=== PATIENT | male | born 1985 | race Caucasian/White ===

== ENCOUNTER → 2019-07-23 13:18 | Outpatient (CLI) | payer OTHER, SELFPAY | PROVIDERS: PCP Family Medicine; Visit Provider Physician Assistant | DX: R19.7 Diarrhea, unspecified (principal) | CPT/HCPCS: 87045; 87177; 87899 ==

== ENCOUNTER 2019-07-23 13:57 | Inpatient (IN) | payer OTHER, SELFPAY ==
[2019-07-23] VITALS (17 sets, daily range): BP systolic 93–161; BP diastolic 43–83; PULSE 70–127; RESP 14–16; TEMP 36.5–40.2; O2SAT 88–100; BMI 23.7
--- NOTE | 2019-07-23 | PATH_ITS ---
[facility] Accession Number: [id number] . 01 Material submitted: . appendix - APPENDIX . 02 Diagnosis: Appendix: Acute appendicitis. [facility]/07/28/2019 . 02 Electronically signed: . Ti Larsen MD, Pathologist NPI- [id number] . 01 Gross description: . Received in formalin, labeled appendix, is an intact appendix (length-7.3 cm, diameter-1.2 cm) with machado-brown smooth shiny diffusely exudate-covered serosa with attached mesoappendix (up to 1.3 cm in depth). The resection margin is received stapled. The lumen contains morales solid-soft material. The wall is up to 0.1 cm thick. No nodules, masses or lesions are identified. The resection margin is inked black. Section code: (A1) resection margin en face and three additional underwriting sales representative serial sections; (A2) one-half of the bivalved tip. ([id number]) /MRV . 02 Pathologist provided ICD-10: K35.80 . 02 CPT . 747236 Performed at: 01 [facility] [address], [place], [place] [id number] MD Jake Rondon MD Phone: [phone] Performed at: 02 [facility] [address] [place], [place] [id number] MD Kristy Sharma MD Phone: [phone]
--- NOTE | 2019-07-23 14:28 | DI.CT.S_ITS ---
PROCEDURE: CT ABDOMEN PELVIS W CON INDICATIONS: severe abdominal pain mid up and low and bloatedness TECHNIQUE: After the administration of oral and intravenous contrast, 5 mm thick sections acquired from the diaphragms to the symphysis. 5 mm thick coronal and sagittal reformats were performed. For radiation dose reduction, the following was used: automated exposure control, adjustment of mA and/or kV according to patient size. COMPARISON: None. FINDINGS: Image quality: Diagnostic. ABDOMEN: Lung bases: Lung bases are clear. Heart size is normal. Solid organs: Liver is normal in size and enhancement. Gallbladder is not enlarged or inflamed. Biliary system is non-dilated. Pancreas enhances normally. Spleen is normal in size and enhancement. No adrenal nodules. Kidneys are normal in size and enhancement, without hydronephrosis. There is mild prominence of the proximal to mid right ureter with urothelial enhancement evident near the level of the abnormal appendix. Peritoneum and bowel: The stomach and duodenum are unremarkable. The small bowel loops are nondilated. Moderate residual stool is seen within the proximal colon. The appendix is noted to be enlarged and contains multiple appendicoliths. The appendix measures up to approximately 1.4 cm in diameter. There is moderate edema identified within the mesentery surrounding the appendix. A small amount of free fluid is seen within the right paracolic cutter. No loculated fluid collections or definite free air is evident. Nodes and vessels: No retroperitoneal or mesenteric adenopathy. However, multiple subcentimeter lymph nodes are identified within the ileocolic region. Aorta and inferior vena cava are normal in caliber. Bones: No acute fracture or suspicious osseous lesion is evident. PELVIS: Genitourinary: Bladder wall thickness is normal. The prostate is not enlarged. Miscellaneous: No inguinal hernias or adenopathy. No loculated fluid collections or free air is evident. Bones: No suspicious bony lesions. No acute pelvic fractures are present. IMPRESSION: 1. Acute appendicitis. 2. Minimal free fluid within the right paracolic gutter is likely reactive. There is no abscess. 3. No bowel obstruction. 4. Nonspecific prominence of the proximal to mid right ureter with urothelial enhancement is likely reactive to the patient's acute appendicitis. Dictated by: Sadiq Wright M.D. on 07/23/2019 at 14:39 Approved by: Sadiq Wright M.D. on 07/23/2019 at 14:44
[2019-07-23 14:35] LABS: Add Manual Diff / Slide Review NO; Basophils Absolute Auto 0 /uL (0-100); Basophils Percent Auto 0.4 % (0-2); Eosinophils Absolute Auto 0 /uL (0-450); Eosinophils Percent Auto 0.3 % (2-4); Hemoglobin 15.5 g/dL (13.5-17.5); Lymphocytes Absolute Auto 1300 /uL (1100-4500); Lymphocytes Percent Auto 12.2 % (25-40); Mean Corpuscular HGB Conc 35.2 % (30-36); Mean Corpuscular Volume 85.3 fL (80-100); Monocytes Absolute Auto 700 /uL (0-900); Monocytes Percent Auto 6.2 % (3-14); Neutrophils Absolute Auto 8700 /uL (1500-7000); Neutrophils Percent Auto 80.9 % (50-75); Platelet Count 179 X10^3/uL (150-400); Red Blood Cell Count 5.16 X10^6/uL (4.5-5.9); Red Cell Distribution Width 12.8 % (11.6-14.8); White Blood Cell Count 10.8 X10^3/uL (4.5-11.0)
[2019-07-23 14:38] LABS: Potassium 3.4 mmol/L (3.4-5.1)
[2019-07-23 14:40] LABS: Alanine Aminotransferase 29 IU/L (21-72); Albumin 4.9 g/dL (3.5-5.0); Albumin Globulin Ratio 1.5 (1.0-2.8); Alkaline Phosphatase 84 U/L (38-126); Aspartate Aminotransferase 28 IU/L (17-59); BUN Creatinine Ratio 14.3 (6-22); Bilirubin Total 0.6 mg/dL (0.2-1.3); Blood Urea Nitrogen 10 mg/dL (9-20); Calcium 9.5 mg/dL (8.4-10.2); Carbon Dioxide 26 mmol/L (22-32); Chloride 100 mmol/L (98-107); Estimated Glomerular Filt Rate > 60.0 mL/min (>60); Globulin 3.2 g/dL (1.7-4.1); Glucose 133 mg/dL (70-100); HEMOLYSIS 25 (0-50); Lipase 24 U/L (23-300); Sodium 139 mmol/L (137-145); Total Protein 8.1 g/dL (6.3-8.2)
[2019-07-23] MEDS: KETOROLAC 60 MG/2 ML VIAL 30 MG IV (14:40)
[2019-07-23] MEDS: ONDANSETRON 4 MG/2 ML INJ IV (14:40)
[2019-07-23] MEDS: MORPHINE 4 MG/ML INJ IV (17:12)
[2019-07-23] MEDS: cefTRIAXone 2,000 MG in DEXTROSE 5 % IN WATER 50 ML 100 ML IV (17:12)
[2019-07-23] MEDS: metroNIDAZOLE 500 MG/100 ML PIGGYBACK 100 MG IV (18:17)
[2019-07-23] MEDS: SODIUM CHLORIDE 0.9% 250 ML 21 ML IV (18:25)
--- NOTE | 2019-07-23 18:31 | ED.ABDPAIN ---
HPI - Abdominal Pain <Surinder Barrera [facility] - Last Filed: 07/23/19 19:12> General Chief Complaint: Abdominal Pain Stated Complaint: severe abdominal pain Time Seen by Provider: 07/23/19 14:19 Source: patient and family Mode of arrival: ambulatory Limitations: no limitations History of Present Illness HPI narrative: This is a 34-year-old male, nonsmoker, who presents with significant other with acute abdominal pain in mid upper and lower abdomen for 24 hours which has been getting worse. Patient reports the pain is like grabbing and twisting and rates as 8/10 at this time. Patient states his abdomen feels bloated. He had diarrhea for 48 hours with mild subjective fever 4 days ago which resolved now. The patient reports he felt much better yesterday with good appetite at lunchtime. He denies urinary symptoms or exposure to illnesses. He reports mild chills but no nausea or vomiting. He states nothing improves his pain but feels better when he is in position. Patient had tried [id number] Imodium, Tums, Pepto-Bismol, and CBD oil which were not effective for the pain. Patient denies any previous history of abdominal surgery. His last p.o. intake was chicken broth and couple of saltines at 10:00 a.m. Related Data Previous Rx's Medication Instructions Recorded amoxicillin-pot clavulanate 1 tab PO BID #14 tab 07/25/19 Allergies Allergy/AdvReac Type Severity Reaction Status Date / Time No Known Drug Allergies Allergy Verified 07/23/19 14:16 Review of Systems <Surinder Barrera [facility] - Last Filed: 07/23/19 19:12> Review of Systems General: See HPI HEENT: Denies sinus pain, ear pain, sore throat, difficulty swallowing, dizziness. Respiratory: Denies dyspnea, cough, wheezing, hemoptysis, sputum. Cardiovascular: Denies chest pain, palpitations, orthopnea, edema. Gastrointestinal: See HPI : Denies dysuria, frequency, incontinence, hematuria, urinary retention. Musculoskeletal: Denies weakness, joint pain or bony pain. Skin: Denies rash, skin lesions, or other. Neurologic: Denies weakness, headache, numbness, change in speech, confusion, seizures, incoordination. Psychiatric: No concerning psychosocial issues. 12-point review of systems is negative except for those stated above. PFSH <TAMMY Mancia - Last Filed: 07/23/19 19:12> Medical History Arm fracture, left (Resolved 1996) Chicken pox (Resolved 1993) Surgical History S/P tonsillectomy (Resolved) Anesthesia (Resolved) History of third molar tooth extraction (Resolved 2003) Family History Grandfather Hypertension High cholesterol Diabetes mellitus Heart disease Grandmother Age: 91 Hypertension High cholesterol Diabetes mellitus Stroke Brother No problems noted. Father Collapsed lung Mother Melanoma Sjogren's syndrome Grandfather No problems noted. Grandmother No problems noted. Sister No problems noted. Social History Smoking Status: Never smoker Family History Grandfather Hypertension High cholesterol Diabetes mellitus Heart disease Grandmother Age: 91 Hypertension High cholesterol Diabetes mellitus Stroke Brother No problems noted. Father Collapsed lung Mother Melanoma Sjogren's syndrome Grandfather No problems noted. Grandmother No problems noted. Sister No problems noted. Social History household members: spouse and children Smoking Status: Never smoker alcohol intake: current Exam <TAMMY Mancia - Last Filed: 07/23/19 19:12> Narrative Exam Narrative: GEN: Alert, oriented x 3, ill appearing, and in moderate distress with facial grimacing and pale and in the face. Head: Normal cephalic, atraumatic. No scalp or temporal tenderness, palpable mass or rash. EYES: Pupils are equal, round, and reactive to light and accommodation. Extraocular muscles are intact bilaterally. There is no subconjunctival hemorrhage, exudate and sclera non-icteric. ENT: Hearing grossly intact. Nose without bleeding, purulent discharge. Mucous membrane moist, no mucosal lesion. Throat without erythema, tonsillar hypertrophy or exudate. Uvula in midline, airway patent. Neck: Trachea in midline. No JVD, non-tender without lymphadenopathy. No masses or thyroid megaly. Supple, non-tender and no meningeal signs. CARDIAC: Normal regular rate and rhythm without murmurs, gallops, or rubs. No chest wall tenderness. No peripheral edema, cyanosis or pallor. Capillary refill is less than 2 seconds. RESPIRATORY: Lungs are cleat to auscultate bilaterally. No cough, wheezes, rales, or rhonchi. No stridor, respiratory distress, increase work of breathing, or accessary muscle used. ABD: Abdomen soft, tender and mildly distended in mid abdomen. No guarding or rebound tenderness to palpate. Bowel sounds are normal in all 4 quadrants. There is no palpable masses or organomegaly. EXT: Full painless ROM of all extremities with no loss of sensation, strength, effusion or edema. SKIN: Warm, dry, normal color for patient. No erythema, lesions or rash over visible areas. BACK: Nontender without deformity or crepitance. No flank tenderness. NEUROLOGICAL: Alert and oriented to place, time and person. Sensation and motor function intact bilaterally. No facial droops, dysphasia. PSYCHIATRIC: Good judgement and reason, without hallucinations, abnormal affect or abnormal behaviors during the examination. Initial Vital Signs Initial Vital Signs: Vital Signs Temperature 97.7 F 07/23/19 14:14 Pulse Rate 70 07/23/19 14:14 Respiratory Rate 16 07/23/19 14:14 Blood Pressure 161/83 H 07/23/19 14:14 Pulse Oximetry 99 07/23/19 14:14 <Charisse Smiley DO - Last Filed: 07/27/19 07:22> Initial Vital Signs Initial Vital Signs: Vital Signs Temperature 97.7 F 07/23/19 14:14 Pulse Rate 70 07/23/19 14:14 Respiratory Rate 16 07/23/19 14:14 Blood Pressure 161/83 H 07/23/19 14:14 Pulse Oximetry 99 07/23/19 14:14 Course <TAMMY Mancia - Last Filed: 07/23/19 19:12> Orders Ordered: Discontinued Medications Acetaminophen (Tylenol) 650 mg PO Q6HR [facility] Last Admin: 07/25/19 06:19 Dose: 650 mg Admin: 07/24/19 23:49 Dose: 650 mg Admin: 07/24/19 17:21 Dose: 650 mg Admin: 07/24/19 11:33 Dose: 650 mg Admin: 07/24/19 07:07 Dose: 650 mg Admin: 07/23/19 23:53 Dose: 650 mg Admin: 07/23/19 19:36 Dose: 650 mg Amoxicillin/Clavulanate Potassium (Augmentin 875-125 Mg) 1 tab PO BID [facility] Benzocaine (Cepacol Lozenge) 1 each PO PRN PRN PRN Reason: Sore Throat Bupivacaine HCl/Epinephrine Bitart (Sensorcaine 0.25% W/ Epi (Pf)) 30 ml INJ NOW ONE Stop: 07/23/19 21:40 Last Admin: 07/23/19 21:39 Dose: 30 ml Ciprofloxacin (Cipro) 500 mg PO BID [facility] Last Admin: 07/25/19 11:18 Dose: 500 mg Fentanyl (Sublimaze) 50 mcg IV Q5MIN PRN PRN Reason: Pain, Moderate (4-6) Gabapentin (Neurontin) 900 mg PO BEDTIME [facility] Last Admin: 07/24/19 20:31 Dose: 900 mg Admin: 07/23/19 22:14 Dose: Not Given Heparin Sodium (Porcine) (Heparin) 5,000 unit SUBCUT Q8HR [facility] Last Admin: 07/25/19 06:25 Dose: 5,000 unit Admin: 07/24/19 23:28 Dose: 5,000 unit Admin: 07/24/19 13:15 Dose: 5,000 unit Admin: 07/24/19 07:07 Dose: 5,000 unit Admin: 07/23/19 22:13 Dose: Not Given Hydromorphone HCl (Dilaudid) 0.5 mg IV Q4H PRN PRN Reason: Pain, Moderate (4-6) Last Admin: 07/23/19 19:25 Dose: 0.5 mg Hydromorphone HCl (Dilaudid) 0.5 mg IV Q5MIN PRN PRN Reason: Pain, Moderate (4-6) Hydroxyzine HCl (Vistaril) 25 mg IM NOW PRN PRN Reason: Pain, Mild (1-3) Metronidazole (Flagyl) 500 mg in 100 mls @ 100 mls/hr IV NOW ONE Stop: 07/23/19 17:38 Last Admin: 07/23/19 18:17 Dose: 100 mls/hr Ceftriaxone Sodium 2,000 mg/ (Dextrose) 50 mls @ 100 mls/hr IV NOW ONE Stop: 07/23/19 16:40 Last Admin: 07/23/19 17:12 Dose: 100 mls/hr Sodium Chloride (Normal Saline 0.9%) 250 mls @ 21 mls/hr IV CONT [facility] Last Admin: 07/23/19 18:25 Dose: 21 mls/hr Ceftriaxone Sodium/Dextrose (Rocephin) 2 gm in 50 mls @ 100 mls/hr IV Q24H [facility] Last Admin: 07/24/19 17:22 Dose: 100 mls/hr Metronidazole (Flagyl) 500 mg in 100 mls @ 100 mls/hr IV Q8H [facility] Last Infusion: 07/25/19 11:18 Dose: 0 mls/hr Admin: 07/25/19 10:10 Dose: 100 mls/hr Infusion: 07/25/19 03:04 Dose: 0 mls/hr Admin: 07/25/19 01:56 Dose: 100 mls/hr Infusion: 07/24/19 19:07 Dose: 100 mls/hr Admin: 07/24/19 18:07 Dose: 100 mls/hr Infusion: 07/24/19 13:15 Dose: 0 mls/hr Admin: 07/24/19 09:27 Dose: 100 mls/hr Infusion: 07/24/19 02:55 Dose: 0 mls/hr Admin: 07/24/19 01:52 Dose: 100 mls/hr Lactated Ringer's (Lactated Ringers) 1,000 mls @ 125 mls/hr IV CONT [facility] Last Admin: 07/23/19 21:24 Dose: 84 mls/hr Infusion: 07/23/19 21:24 Dose: 84 mls/hr Admin: 07/23/19 19:26 Dose: 84 mls/hr Lactated Ringer's (Lactated Ringers) 1,000 mls @ 42 mls/hr IV CONT [facility] Last Admin: 07/23/19 20:30 Dose: 42 mls/hr Lactated Ringer's (Lactated Ringers) 1,000 mls @ 25 mls/hr IV CONT [facility] Last Admin: 07/24/19 17:23 Dose: 25 mls/hr Infusion: 07/24/19 11:54 Dose: 21 mls/hr Admin: 07/23/19 23:53 Dose: 84 mls/hr Ketorolac Tromethamine (Toradol) 30 mg IV NOW ONE Stop: 07/23/19 14:28 Last Admin: 07/23/19 14:40 Dose: 30 mg Lactobacillus Acidophilus (Bacid Caplet) 1 each PO TIDWM [facility] Last Admin: 07/25/19 09:58 Dose: 1 each Admin: 07/24/19 17:22 Dose: 1 each Admin: 07/24/19 11:30 Dose: 1 each Admin: 07/24/19 09:27 Dose: 1 each Lorazepam (Ativan) 2 mg IM NOW ONE Stop: 07/23/19 15:58 Last Admin: 07/23/19 16:12 Dose: Not Given Lorazepam (Ativan) 0.25 mg IV NOW PRN PRN Reason: Anxiety Meperidine HCl (Demerol) 25 mg IV Q5MIN PRN PRN Reason: Pain or shivering Methocarbamol (Robaxin) 750 mg PO QID [facility] Last Admin: 07/25/19 09:58 Dose: 750 mg Admin: 07/24/19 20:31 Dose: 750 mg Admin: 07/24/19 17:21 Dose: 750 mg Admin: 07/24/19 12:41 Dose: 750 mg Admin: 07/24/19 09:27 Dose: 750 mg Admin: 07/23/19 22:13 Dose: Not Given Metoclopramide HCl (Reglan) 10 mg IV NOW PRN PRN Reason: Nausea And Vomiting Morphine Sulfate (Morphine) 4 mg IV NOW ONE Stop: 07/23/19 16:14 Last Admin: 07/23/19 16:31 Dose: Not Given Morphine Sulfate (Morphine) 4 mg IV NOW ONE Stop: 07/23/19 17:09 Last Admin: 07/23/19 17:12 Dose: 4 mg Ondansetron HCl (Zofran) 4 mg IV NOW ONE Stop: 07/23/19 14:28 Last Admin: 07/23/19 14:40 Dose: 4 mg Ondansetron HCl (Zofran) 4 mg IV Q4HR PRN PRN Reason: Nausea And Vomiting Ondansetron HCl (Zofran) 4 mg IV NOW PRN PRN Reason: Nausea And Vomiting Oxycodone HCl (Percolone) 5 mg PO Q4HR PRN PRN Reason: Pain, Moderate (4-6) Oxycodone HCl (Percolone) 10 mg PO Q4HR PRN PRN Reason: Pain, Severe (7-10) Promethazine HCl (Phenadoz) 12.5 mg [place] Q6HR PRN PRN Reason: Nausea And Vomiting Vital Signs - 8 hr 07/23/19 14:14 07/23/19 16:05 07/23/19 16:08 Temperature 97.7 F Pulse Rate 70 76 Respiratory Rate 16 14 Blood Pressure 161/83 H Blood Pressure [Right Arm] 126/64 Pulse Oximetry 99 100 07/23/19 18:20 Temperature 98.9 F Pulse Rate 80 Respiratory Rate 16 Blood Pressure 146/69 H Blood Pressure [Right Arm] Pulse Oximetry 96 <Charisse Smiley DO - Last Filed: 07/27/19 07:22> Orders Ordered: Discontinued Medications Acetaminophen (Tylenol) 650 mg PO Q6HR [facility] Last Admin: 07/25/19 06:19 Dose: 650 mg Admin: 07/24/19 23:49 Dose: 650 mg Admin: 07/24/19 17:21 Dose: 650 mg Admin: 07/24/19 11:33 Dose: 650 mg Admin: 07/24/19 07:07 Dose: 650 mg Admin: 07/23/19 23:53 Dose: 650 mg Admin: 07/23/19 19:36 Dose: 650 mg Amoxicillin/Clavulanate Potassium (Augmentin 875-125 Mg) 1 tab PO BID [facility] Benzocaine (Cepacol Lozenge) 1 each PO PRN PRN PRN Reason: Sore Throat Bupivacaine HCl/Epinephrine Bitart (Sensorcaine 0.25% W/ Epi (Pf)) 30 ml INJ NOW ONE Stop: 07/23/19 21:40 Last Admin: 07/23/19 21:39 Dose: 30 ml Ciprofloxacin (Cipro) 500 mg PO BID [facility] Last Admin: 07/25/19 11:18 Dose: 500 mg Fentanyl (Sublimaze) 50 mcg IV Q5MIN PRN PRN Reason: Pain, Moderate (4-6) Gabapentin (Neurontin) 900 mg PO BEDTIME [facility] Last Admin: 07/24/19 20:31 Dose: 900 mg Admin: 07/23/19 22:14 Dose: Not Given Heparin Sodium (Porcine) (Heparin) 5,000 unit SUBCUT Q8HR [facility] Last Admin: 07/25/19 06:25 Dose: 5,000 unit Admin: 07/24/19 23:28 Dose: 5,000 unit Admin: 07/24/19 13:15 Dose: 5,000 unit Admin: 07/24/19 07:07 Dose: 5,000 unit Admin: 07/23/19 22:13 Dose: Not Given Hydromorphone HCl (Dilaudid) 0.5 mg IV Q4H PRN PRN Reason: Pain, Moderate (4-6) Last Admin: 07/23/19 19:25 Dose: 0.5 mg Hydromorphone HCl (Dilaudid) 0.5 mg IV Q5MIN PRN PRN Reason: Pain, Moderate (4-6) Hydroxyzine HCl (Vistaril) 25 mg IM NOW PRN PRN Reason: Pain, Mild (1-3) Metronidazole (Flagyl) 500 mg in 100 mls @ 100 mls/hr IV NOW ONE Stop: 07/23/19 17:38 Last Admin: 07/23/19 18:17 Dose: 100 mls/hr Ceftriaxone Sodium 2,000 mg/ (Dextrose) 50 mls @ 100 mls/hr IV NOW ONE Stop: 07/23/19 16:40 Last Admin: 07/23/19 17:12 Dose: 100 mls/hr Sodium Chloride (Normal Saline 0.9%) 250 mls @ 21 mls/hr IV CONT [facility] Last Admin: 07/23/19 18:25 Dose: 21 mls/hr Ceftriaxone Sodium/Dextrose (Rocephin) 2 gm in 50 mls @ 100 mls/hr IV Q24H [facility] Last Admin: 07/24/19 17:22 Dose: 100 mls/hr Metronidazole (Flagyl) 500 mg in 100 mls @ 100 mls/hr IV Q8H [facility] Last Infusion: 07/25/19 11:18 Dose: 0 mls/hr Admin: 07/25/19 10:10 Dose: 100 mls/hr Infusion: 07/25/19 03:04 Dose: 0 mls/hr Admin: 07/25/19 01:56 Dose: 100 mls/hr Infusion: 07/24/19 19:07 Dose: 100 mls/hr Admin: 07/24/19 18:07 Dose: 100 mls/hr Infusion: 07/24/19 13:15 Dose: 0 mls/hr Admin: 07/24/19 09:27 Dose: 100 mls/hr Infusion: 07/24/19 02:55 Dose: 0 mls/hr Admin: 07/24/19 01:52 Dose: 100 mls/hr Lactated Ringer's (Lactated Ringers) 1,000 mls @ 125 mls/hr IV CONT [facility] Last Admin: 07/23/19 21:24 Dose: 84 mls/hr Infusion: 07/23/19 21:24 Dose: 84 mls/hr Admin: 07/23/19 19:26 Dose: 84 mls/hr Lactated Ringer's (Lactated Ringers) 1,000 mls @ 42 mls/hr IV CONT [facility] Last Admin: 07/23/19 20:30 Dose: 42 mls/hr Lactated Ringer's (Lactated Ringers) 1,000 mls @ 25 mls/hr IV CONT [facility] Last Admin: 07/24/19 17:23 Dose: 25 mls/hr Infusion: 07/24/19 11:54 Dose: 21 mls/hr Admin: 07/23/19 23:53 Dose: 84 mls/hr Ketorolac Tromethamine (Toradol) 30 mg IV NOW ONE Stop: 07/23/19 14:28 Last Admin: 07/23/19 14:40 Dose: 30 mg Lactobacillus Acidophilus (Bacid Caplet) 1 each PO TIDWM [facility] Last Admin: 07/25/19 09:58 Dose: 1 each Admin: 07/24/19 17:22 Dose: 1 each Admin: 07/24/19 11:30 Dose: 1 each Admin: 07/24/19 09:27 Dose: 1 each Lorazepam (Ativan) 2 mg IM NOW ONE Stop: 07/23/19 15:58 Last Admin: 07/23/19 16:12 Dose: Not Given Lorazepam (Ativan) 0.25 mg IV NOW PRN PRN Reason: Anxiety Meperidine HCl (Demerol) 25 mg IV Q5MIN PRN PRN Reason: Pain or shivering Methocarbamol (Robaxin) 750 mg PO QID [facility] Last Admin: 07/25/19 09:58 Dose: 750 mg Admin: 07/24/19 20:31 Dose: 750 mg Admin: 07/24/19 17:21 Dose: 750 mg Admin: 07/24/19 12:41 Dose: 750 mg Admin: 07/24/19 09:27 Dose: 750 mg Admin: 07/23/19 22:13 Dose: Not Given Metoclopramide HCl (Reglan) 10 mg IV NOW PRN PRN Reason: Nausea And Vomiting Morphine Sulfate (Morphine) 4 mg IV NOW ONE Stop: 07/23/19 16:14 Last Admin: 07/23/19 16:31 Dose: Not Given Morphine Sulfate (Morphine) 4 mg IV NOW ONE Stop: 07/23/19 17:09 Last Admin: 07/23/19 17:12 Dose: 4 mg Ondansetron HCl (Zofran) 4 mg IV NOW ONE Stop: 07/23/19 14:28 Last Admin: 07/23/19 14:40 Dose: 4 mg Ondansetron HCl (Zofran) 4 mg IV Q4HR PRN PRN Reason: Nausea And Vomiting Ondansetron HCl (Zofran) 4 mg IV NOW PRN PRN Reason: Nausea And Vomiting Oxycodone HCl (Percolone) 5 mg PO Q4HR PRN PRN Reason: Pain, Moderate (4-6) Oxycodone HCl (Percolone) 10 mg PO Q4HR PRN PRN Reason: Pain, Severe (7-10) Promethazine HCl (Phenadoz) 12.5 mg [place] Q6HR PRN PRN Reason: Nausea And Vomiting Vital Signs - 8 hr 07/23/19 14:14 07/23/19 16:05 07/23/19 16:08 Temperature 97.7 F Pulse Rate 70 76 Respiratory Rate 16 14 Blood Pressure 161/83 H Blood Pressure [Right Arm] 126/64 Pulse Oximetry 99 100 07/23/19 18:20 Temperature 98.9 F Pulse Rate 80 Respiratory Rate 16 Blood Pressure 146/69 H Blood Pressure [Right Arm] Pulse Oximetry 96 MDM - Abdominal Pain <Surinder TAMMY Barrera - Last Filed: 07/23/19 19:12> Differential Diagnosis Differential diagnosis: Likely abdominal pain, acute appendicitis, calculus of kidney and constipation Medical Records Attestation: I reviewed the patient's medical records. Lab Data Attestation: I reviewed the patient's lab results. Result diagrams: 07/25/19 05:19 07/24/19 05:34 Lab Results 07/23/19 07/23/19 07/24/19 Range/Units 14:10 14:10 05:34 WBC 10.8 13.7 H (4.5-11.0) X10^3/uL RBC 5.16 4.52 (4.5-5.9) X10^6/uL Hgb 15.5 13.6 (13.5-17.5) g/dL Hct 44.0 38.9 L (41-53) % MCV 85.3 86.1 (80-100) fL MCH 30.0 30.0 (26-34) PG MCHC 35.2 34.9 (30-36) % RDW 12.8 13.1 (11.6-14.8) % Plt Count 179 132 L (150-400) X10^3/uL Neut % (Auto) 80.9 H 94.7 H (50-75) % Lymph % (Auto) 12.2 L 1.9 L (25-40) % [place] % (Auto) 6.2 3.2 (3-14) % Eos % (Auto) 0.3 L 0.0 L (2-4) % Baso % (Auto) 0.4 0.2 (0-2) % Neut # (Auto) 8700 H 55101 H (1523-0502) /uL Lymph # (Auto) 1300 300 L (7955-6040) /uL [place] # (Auto) 700 400 (0-900) /uL Eos # (Auto) 0 0 (0-450) /uL Baso # (Auto) 0 0 (0-100) /uL Sodium 139 (137-145) mmol/L Potassium 3.4 (3.4-5.1) mmol/L Chloride 100 (98-107) mmol/L Carbon Dioxide 26 (22-32) mmol/L BUN 10 (9-20) mg/dL Creatinine 0.70 (0.66-1.25) mg/dL Estimated GFR > 60.0 (>60) mL/min BUN/Creatinine Ratio 14.3 (6-22) Glucose 133 H (70-100) mg/dL Calcium 9.5 (8.4-10.2) mg/dL Magnesium (1.6-2.3) mg/dL Total Bilirubin 0.6 (0.2-1.3) mg/dL AST 28 (17-59) IU/L ALT 29 (21-72) IU/L Alkaline Phosphatase 84 (38-126) U/L Total Protein 8.1 (6.3-8.2) g/dL Albumin 4.9 (3.5-5.0) g/dL Globulin 3.2 (1.7-4.1) g/dL Albumin/Globulin Ratio 1.5 (1.0-2.8) Lipase 24 (23-300) U/L 07/24/19 07/25/19 Range/Units 05:34 05:19 WBC 6.9 (4.5-11.0) X10^3/uL RBC 4.21 L (4.5-5.9) X10^6/uL Hgb 12.8 L (13.5-17.5) g/dL Hct 36.2 L (41-53) % MCV 85.8 (80-100) fL MCH 30.3 (26-34) PG MCHC 35.3 (30-36) % RDW 13.4 (11.6-14.8) % Plt Count 107 L (150-400) X10^3/uL Neut % (Auto) 79.0 H (50-75) % Lymph % (Auto) 13.8 L (25-40) % [place] % (Auto) 5.9 (3-14) % Eos % (Auto) 0.7 L (2-4) % Baso % (Auto) 0.6 (0-2) % Neut # (Auto) 5400 (8964-5074) /uL Lymph # (Auto) 900 L (4529-7269) /uL [place] # (Auto) 400 (0-900) /uL Eos # (Auto) 0 (0-450) /uL Baso # (Auto) 0 (0-100) /uL Sodium 141 (137-145) mmol/L Potassium 3.6 (3.4-5.1) mmol/L Chloride 105 (98-107) mmol/L Carbon Dioxide 26 (22-32) mmol/L BUN 11 (9-20) mg/dL Creatinine 0.80 (0.66-1.25) mg/dL Estimated GFR > 60.0 (>60) mL/min BUN/Creatinine Ratio 13.8 (6-22) Glucose 144 H (70-100) mg/dL Calcium 8.6 (8.4-10.2) mg/dL Magnesium 1.5 L (1.6-2.3) mg/dL Total Bilirubin (0.2-1.3) mg/dL AST (17-59) IU/L ALT (21-72) IU/L Alkaline Phosphatase (38-126) U/L Total Protein (6.3-8.2) g/dL Albumin (3.5-5.0) g/dL Globulin (1.7-4.1) g/dL Albumin/Globulin Ratio (1.0-2.8) Lipase (23-300) U/L Point of care testing: Urine Dip Bedside Urine Glucose Negative Bedside Urine Bilirubin - Negative Bedside Urine Ketone - Negative Urine Specific [place] 1.015 Bedside Urine Occult Blood - Negative Bedside Urine pH 7.0 Bedside Urine Protein - Negative Bedside Urine Urobilinogen - Negative Bedside Urine Nitrite - Negative Bedside Urine Leukocytes - Negative Esterase Imaging Data CT scan - abdomen: Radiologist's impression: [place] [address] CT Scan Report Signed Patient: Jeremiah Carpio#: [id number] : 1985Acct:[id number] Age/Sex: 34 / MDate of Service: 07/23/19 Loc: ED Accession Number: [id number] Procedure: CT abdomen pelvis w con Ordering Provider: Surinder Barrera [facility] PROCEDURE: CT ABDOMEN PELVIS W CON INDICATIONS: severe abdominal pain mid up and low and bloatedness TECHNIQUE: After the administration of oral and intravenous contrast, 5 mm thick sections acquired from the diaphragms to the symphysis. 5 mm thick coronal and sagittal reformats were performed. For radiation dose reduction, the following was used: automated exposure control, adjustment of mA and/or kV according to patient size. COMPARISON: None. FINDINGS: Image quality: Diagnostic. ABDOMEN: Lung bases: Lung bases are clear. Heart size is normal. Solid organs: Liver is normal in size and enhancement. Gallbladder is not enlarged or inflamed. Biliary system is non-dilated. Pancreas enhances normally. Spleen is normal in size and enhancement. No adrenal nodules. Kidneys are normal in size and enhancement, without hydronephrosis. There is mild prominence of the proximal to mid right ureter with urothelial enhancement evident near the level of the abnormal appendix. Peritoneum and bowel: The stomach and duodenum are unremarkable. The small bowel loops are nondilated. Moderate residual stool is seen within the proximal colon. The appendix is noted to be enlarged and contains multiple appendicoliths. The appendix measures up to approximately 1.4 cm in diameter. There is moderate edema identified within the mesentery surrounding the appendix. A small amount of free fluid is seen within the right paracolic cutter. No loculated fluid collections or definite free air is evident. Nodes and vessels: No retroperitoneal or mesenteric adenopathy. However, multiple subcentimeter lymph nodes are identified within the ileocolic region. Aorta and inferior vena cava are normal in caliber. Bones: No acute fracture or suspicious osseous lesion is evident. PELVIS: Genitourinary: Bladder wall thickness is normal. The prostate is not enlarged. Miscellaneous: No inguinal hernias or adenopathy. No loculated fluid collections or free air is evident. Bones: No suspicious bony lesions. No acute pelvic fractures are present. IMPRESSION: 1. Acute appendicitis. 2. Minimal free fluid within the right paracolic gutter is likely reactive. There is no abscess. 3. No bowel obstruction. 4. Nonspecific prominence of the proximal to mid right ureter with urothelial enhancement is likely reactive to the patient's acute appendicitis. Dictated by: Sadiq Wright M.D. on 07/23/2019 at 14:39 Approved by: Sadiq Wright M.D. on 07/23/2019 at 14:44 [facility] Narrative Medical decision making narrative: The patient complain of mid upper and lower abdominal pain for 24 hours without fever, nausea or vomiting, urinary symptoms. Urine shows no blood or infections. White count was normal with elevated neutrophil. The chemistry test was unremarkable. CT abdomen and pelvis indicates patient has acute appendicitis without obstruction or abscess. Patient's physical exam showed some tenderness to palpate but no significant rebound tenderness or focalized right lower quadrant pain. Dr. Chase was consulted test endings. Patient and states pain improved with medication and was started on antibiotic medication of Rocephin [address] Corey requested with 500 mg Flagyl. <Charisse Smiley, DO - Last Filed: 07/27/19 07:22> Lab Data Lab Results 07/23/19 07/23/19 07/24/19 Range/Units 14:10 14:10 05:34 WBC 10.8 13.7 H (4.5-11.0) X10^3/uL RBC 5.16 4.52 (4.5-5.9) X10^6/uL Hgb 15.5 13.6 (13.5-17.5) g/dL Hct 44.0 38.9 L (41-53) % MCV 85.3 86.1 (80-100) fL MCH 30.0 30.0 (26-34) PG MCHC 35.2 34.9 (30-36) % RDW 12.8 13.1 (11.6-14.8) % Plt Count 179 132 L (150-400) X10^3/uL Neut % (Auto) 80.9 H 94.7 H (50-75) % Lymph % (Auto) 12.2 L 1.9 L (25-40) % [place] % (Auto) 6.2 3.2 (3-14) % Eos % (Auto) 0.3 L 0.0 L (2-4) % Baso % (Auto) 0.4 0.2 (0-2) % Neut # (Auto) 8700 H 33978 H (3735-6144) /uL Lymph # (Auto) 1300 300 L (3413-9259) /uL [place] # (Auto) 700 400 (0-900) /uL Eos # (Auto) 0 0 (0-450) /uL Baso # (Auto) 0 0 (0-100) /uL Sodium 139 (137-145) mmol/L Potassium 3.4 (3.4-5.1) mmol/L Chloride 100 (98-107) mmol/L Carbon Dioxide 26 (22-32) mmol/L BUN 10 (9-20) mg/dL Creatinine 0.70 (0.66-1.25) mg/dL Estimated GFR > 60.0 (>60) mL/min BUN/Creatinine Ratio 14.3 (6-22) Glucose 133 H (70-100) mg/dL Calcium 9.5 (8.4-10.2) mg/dL Magnesium (1.6-2.3) mg/dL Total Bilirubin 0.6 (0.2-1.3) mg/dL AST 28 (17-59) IU/L ALT 29 (21-72) IU/L Alkaline Phosphatase 84 (38-126) U/L Total Protein 8.1 (6.3-8.2) g/dL Albumin 4.9 (3.5-5.0) g/dL Globulin 3.2 (1.7-4.1) g/dL Albumin/Globulin Ratio 1.5 (1.0-2.8) Lipase 24 (23-300) U/L 07/24/19 07/25/19 Range/Units 05:34 05:19 WBC 6.9 (4.5-11.0) X10^3/uL RBC 4.21 L (4.5-5.9) X10^6/uL Hgb 12.8 L (13.5-17.5) g/dL Hct 36.2 L (41-53) % MCV 85.8 (80-100) fL MCH 30.3 (26-34) PG MCHC 35.3 (30-36) % RDW 13.4 (11.6-14.8) % Plt Count 107 L (150-400) X10^3/uL Neut % (Auto) 79.0 H (50-75) % Lymph % (Auto) 13.8 L (25-40) % [place] % (Auto) 5.9 (3-14) % Eos % (Auto) 0.7 L (2-4) % Baso % (Auto) 0.6 (0-2) % Neut # (Auto) 5400 (1521-0099) /uL Lymph # (Auto) 900 L (1985-3168) /uL [place] # (Auto) 400 (0-900) /uL Eos # (Auto) 0 (0-450) /uL Baso # (Auto) 0 (0-100) /uL Sodium 141 (137-145) mmol/L Potassium 3.6 (3.4-5.1) mmol/L Chloride 105 (98-107) mmol/L Carbon Dioxide 26 (22-32) mmol/L BUN 11 (9-20) mg/dL Creatinine 0.80 (0.66-1.25) mg/dL Estimated GFR > 60.0 (>60) mL/min BUN/Creatinine Ratio 13.8 (6-22) Glucose 144 H (70-100) mg/dL Calcium 8.6 (8.4-10.2) mg/dL Magnesium 1.5 L (1.6-2.3) mg/dL Total Bilirubin (0.2-1.3) mg/dL AST (17-59) IU/L ALT (21-72) IU/L Alkaline Phosphatase (38-126) U/L Total Protein (6.3-8.2) g/dL Albumin (3.5-5.0) g/dL Globulin (1.7-4.1) g/dL Albumin/Globulin Ratio (1.0-2.8) Lipase (23-300) U/L Point of care testing: Urine Dip Bedside Urine Glucose Negative Bedside Urine Bilirubin - Negative Bedside Urine Ketone - Negative Urine Specific [place] 1.015 Bedside Urine Occult Blood - Negative Bedside Urine pH 7.0 Bedside Urine Protein - Negative Bedside Urine Urobilinogen - Negative Bedside Urine Nitrite - Negative Bedside Urine Leukocytes - Negative Esterase Discharge Plan Departure Patient Disposition: Admitted As Inpatient Clinical Impression: Acute appendicitis Qualifiers: Acute appendicitis type: unspecified acute appendicitis type Qualified Code(s): K35.80 - Unspecified acute appendicitis Discharge Date/Time: 07/23/19 17:30 Interventions: ED Discharge Assessment Last Done: 07/23/19 17:26 Admit Date/Time: 07/23/19 17:33 Admit Provider: Pelon Corey <Charisse Smiley DO - Last Filed: 07/27/19 07:22> Cosign ED Attending Cosrodgerature Attestation: I was immediately available in the department for consultation, case was discussed. This documentation has been reviewed and I agree with assessment and plan. Supervised by Charisse Smiley DO
--- NOTE | 2019-07-23 19:24 | PM.HP.1 ---
History of Present Illness Date Patient Seen: 07/23/19 Time Patient Seen: 16:00 Chief complaint: severe abdominal pain Narrative: 34-year-old man presents with lower abdominal pain. Pain was preceded by approximately 3 days of malaise, loss of appetite, diarrhea. Approximately 18 hours ago developed significant lower abdominal pain just to the right of midline -became significantly worse at 9:00 a.m. today prompting visit to ED. Pain is worse with movement. Improved with rest and pain medication. No associated nausea or vomiting. But feels unwell Seen in the emergency department or found to have a white blood cell count of 10.8 with a left shift: % neutrophils 80.9. CT scan demonstrated a dilated inflamed appendix at 1.4 cm. The appendix was not in the typical anatomic position but projected towards midline across the lower abdomen. Received 2 g of ceftriaxone and 500 mg of metronidazole an ED Upon arrival to floor Temp 103.4, HR 104 Patient History Medical History Arm fracture, left (Resolved 1996) Chicken pox (Resolved 1993) Surgical History S/P tonsillectomy (Resolved) Anesthesia (Resolved) History of third molar tooth extraction (Resolved 2003) Family History Grandfather Hypertension High cholesterol Diabetes mellitus Heart disease Grandmother Age: 91 Hypertension High cholesterol Diabetes mellitus Stroke Brother No problems noted. Father Collapsed lung Mother Melanoma Sjogren's syndrome Grandfather No problems noted. Grandmother No problems noted. Sister No problems noted. Social History Smoking Status: Never smoker Family & Social History Family History Grandfather Hypertension High cholesterol Diabetes mellitus Heart disease Grandmother Age: 91 Hypertension High cholesterol Diabetes mellitus Stroke Brother No problems noted. Father Collapsed lung Mother Melanoma Sjogren's syndrome Grandfather No problems noted. Grandmother No problems noted. Sister No problems noted. Social History: household members spouse,children Prior Living Arrangements House Safety & Behavioral: Feels Safe in Current Yes Environment Been Physically Hurt or No Threatened By a Person Suicidal Ideation Description None Suicide Plan Description No Plan Tobacco & Substance use: Smoking Status Never smoker alcohol intake frequency holiday/special occasion Substance Use Type does not use Meds Home Medications Medication Instructions Recorded Confirmed Type No Known Home Medications 05/14/19 07/23/19 History Allergies Allergy/AdvReac Type Severity Reaction Status Date / Time No Known Drug Allergies Allergy Verified 07/23/19 14:16 Review of Systems Constitutional Constitutional: Denies fever(s) Eyes Eyes: Denies bulging eyes ENT Ears, Nose, Mouth, and Throat: No lip swelling Cardiovascular Cardiovascular: Denies generalize swelling Respiratory Respiratory: Denies stridor Gastrointestinal Gastrointestinal: Denies coffee ground emesis Musculoskeletal Musculoskeletal: Denies loss of height Integumentary/Breasts Skin/Breast: Denies wounds Neurologic Neurologic: Denies abnormal speech and Denies confusion Psychiatric Psychiatric: Denies confusion Endocrine Endocrine: Denies deepening of the voice Hematologic/Lymphatic Hematologic/Lymphatic: Denies lymphadenopathy Allergic/Immunologic Allergic/Immunologic: Denies lip swelling Exam Vital Signs (past 8 hours): - 07/23/19 14:14 07/23/19 16:05 07/23/19 16:08 Temperature 97.7 F Pulse Rate 70 76 Respiratory Rate 16 14 Blood Pressure 161/83 H Blood Pressure [Right Arm] 126/64 Pulse Oximetry 99 100 07/23/19 18:20 Temperature 98.9 F Pulse Rate 80 Respiratory Rate 16 Blood Pressure 146/69 H Blood Pressure [Right Arm] Pulse Oximetry 96 Oxygen Delivery Method Room Air Narrative Exam Narrative: Looks un well Const General: cooperative Orientation: alert [facility] Head: normal to inspection Nose: nares normal Mouth: oral mucosae normal and lip normal Eyes Eyelids: eyelids normal Conjunctivae: conjunctivae normal Sclera: sclerae normal Neck Neck: supple and other (No thyromegally) Chest Chest: other (LCTAB , regular respiratory effort) Cardio Rhythm: regular rhythm Heart Sounds: S1 normal, S2 normal, no gallops, no murmurs and no rubs GI Other: Moderately distended abdomen, no surgical scars. Dull to percussion, nontender to percussion. Tender to palpation in the right lower quadrant in the suprapubic region. Negative Rovsing sign. Negative bed shake test. No generalized tenderness Skin General: no rashes or lesions noted Neuro General: alert and awake Psych Appearance: grossly normal Affect: normal affect Objective Labs Result Diagrams: 07/23/19 14:10 07/23/19 14:10 Labs: Laboratory Results - last 24 hr 07/23/19 07/23/19 14:10 14:10 WBC 10.8 RBC 5.16 Hgb 15.5 Hct 44.0 MCV 85.3 MCH 30.0 MCHC 35.2 RDW 12.8 Plt Count 179 Neut % (Auto) 80.9 H Lymph % (Auto) 12.2 L [place] % (Auto) 6.2 Eos % (Auto) 0.3 L Baso % (Auto) 0.4 Neut # (Auto) 8700 H Lymph # (Auto) 1300 [place] # (Auto) 700 Eos # (Auto) 0 Baso # (Auto) 0 Sodium 139 Potassium 3.4 Chloride 100 Carbon Dioxide 26 BUN 10 Creatinine 0.70 Estimated GFR > 60.0 BUN/Creatinine Ratio 14.3 Glucose 133 H Calcium 9.5 Total Bilirubin 0.6 AST 28 ALT 29 Alkaline Phosphatase 84 Total Protein 8.1 Albumin 4.9 Globulin 3.2 Albumin/Globulin Ratio 1.5 Lipase 24 Assessment & Plan Assessment & Plan narrative: 34-year-old man presented with 1.5 days of abdominal pain now worsening -with a mild leukocytosis and a CT scan demonstrating acute appendicitis. There is a significant amount of fat stranding adjacent to the appendix. Newly meeting sepsis criteria Plan: Surgery tonight Lap appy possible conversion to open, possible bowel resection - unlikely - discussed cont abx Quality VTE Deep Vein Thrombosis/Pulmonary Embolism Present on Admission: No
[2019-07-23] MEDS: HYDROMORPHONE 0.5 MG INJ IV (19:25)
[2019-07-23] MEDS: LACTATED RINGERS 1,000 ML 84 ML IV ×3 (19:26→23:53)
[2019-07-23] MEDS: ACETAMINOPHEN 325 MG TABLET 650 MG PO ×2 (19:36→23:53)
[2019-07-23] MEDS: LACTATED RINGERS 1,000 ML 42 ML IV (20:30)
--- NOTE | 2019-07-23 21:05 | SUR.OPER ---
Supine on padded OR bed, head on pillow, left arm padded and tucked at side, legs uncrossed, safety belt at thigh, tape over blanket over lower legs .
[2019-07-23] MEDS: BUPIVACAINE 0.25% W/ EPI 30 ML VIAL INJ (21:39)
--- NOTE | 2019-07-23 21:55 | PC.NURSE ---
Patient arrived to floor feeling cold and shivering. VSS were stable when check upon arrival. Further into evening this nurse started to notice a change in patient dispostition, he became increasingly pale, fingers were more cyanotic, HR slightly elevating and temp was 103.4. Doctor was notified as he was on floor and had just seen patient. As the hour progressed patient began to have cold shakes but temp. increasingly elevated as high as 104.0 and HR as high as 111. Provider contacted again and this nurse asked mult. times if we should start sepsis protocol. No action taken by provider until temp spiked to 104.3, b/p was HTN and heart rate spiked to 141. Provider gave go ahead to bolus patient at bedside, and patient was immediately undressed, placed in gown and taken down to surgery by doctor and this nurse. Prior to leaving patient in PACU, temp was checked one last time but this nurse for PACU nurse. Reading 106, provider was verbally notified by this nurse in [place] of PACU. Patient's is aware of patient going down to surg. and poss. plan of care. Patient is still down stairs and reports has yet to be given.
--- NOTE | 2019-07-23 22:24 | PM.OP.1 ---
Operative Date/Time/Diagnoses Date of procedure: 07/23/19 Time of procedure: 22:24 Pre-op diagnosis: acute appendicitis with sepsis Post-op diagnosis: other (Acute gangrenous appendicitis with sepsis) Procedure & Clinicians Procedure: Laparoscopic appendectomy with abdominal washout Same procedure as scheduled: Yes Indications: 34-year-old man admitted for acute appendicitis, shortly after admission he became febrile to as high as 106, tachycardic to 145 consistent with sepsis. He did not developed hypotension. He was taken emergently to the operating room for source control. Had received ceftriaxone and metronidazole in the emergency department. Surgeon: Pelon Corey Click Yes if Unassisted: Yes Anesthesia Type: General Operative Notes Findings: Non perforated but frankly gangrenous appendix Small cuff of cecum removed with specimen to placed staple line within healthy tissue Closure Type: primary Specimen(s): other (Appendix) Estimated Blood Loss (mL): 10 Procedure in detail: Patient was brought to the operating room he was intubated without incident he was prepped and draped in the usual sterile fashion time-out was completed. Entry into the abdomen was performed using Savage cutdown technique a vertically oriented incision was placed at the inferior umbilical crown. It was carried through the subcutaneous tissues until the linea alba was encountered. The linea alba was tented upwards with Nathaniel clamps and then 2 retention sutures were placed on either side of it. The clamp was removed the sutures were brought tight in the linea alba was split with a scalpel. The underlying peritoneum was then entered via blunt clamp the clamp was used to direct an S retractor which confirmed intra-abdominal placement. An used to guide the placement of the Savage trocar. Abdomen was then insufflated without incident. Two 5 mm ports were then placed 1 in the left lower quadrant and the other in the suprapubic region being careful to avoid the dome of the bladder. Inspecting the inter abdominal contents curiously there was significant amount of adhesive disease within the abdomen despite the absence of the patient's prior abdominal surgery. There was a tongue of omentum that was adherent to the anterior abdominal wall on the right side. This was laparoscopically lysed off the anterior abdominal wall to give greater domain working area. Next the right colon was identified and followed to the cecum. Corona's veil was readily identified as was the terminal ileum. The appendix was noted and found to be markedly inflamed dilated with the proximal half purpuric and gangrenous. There was a limited amount of free fluid within the right pericolic gutter but no angel perforation and no fecal contamination. The lateral attachments of the cecum were lysed sharply with the Metzenbaum to allow greater mobility of the cecum given the anticipated need to take a cecal cuff to place a staple line on to healthy tissue. At this point a small window was made in the mesoappendix near the junction of the appendix and cecum. Mesoappendix was divided with a vascular load laparoscopic SYEDA stapler. The appendix itself was then placed on tension the is appendiceal base was then skeletonized from adventitial tissue. A 3.5 mm blue load laparoscopic SYEDA stapler load was then used taking with the a generous cuff of cecum. The staple line was robust and hemostatic. The appendix was placed in Endo-Catch bag and later removed from the abdomen via the umbilical port. At this point the remainder of the abdomen was inspected there was adhesive disease between the sigmoid colon in the anterior abdominal wall as well this was not addressed. The pelvis was washed out as was the right lower quadrant and suctioned dry. Hemostasis was again checked and found to be excellent. At this point the 5 mm ports were withdrawn under direct visualization the abdomen was deinsufflated the Savage port was removed and with that the appendix in the Endo-Catch bag-given the degree of edema the fascial defect did have to be enlarged slightly to remove the appendix. There was no spillage of contents. The fascial defect at the umbilicus was then closed with a 0 Vicryl [id number] suture as well as tying together the fascial retention sutures Wounds were copiously irrigated. Local anesthetic was then infiltrated into the the wounds Skin was closed using monofilament absorbable suture in a subcuticular fashion Complications: none Condition: stable Disposition: PACU Plan for aftercare: PACU then floor
--- NOTE | 2019-07-23 23:09 | SUR.PHASEI ---
PACU post op note: VSS, stable, oral airway discontinued at 2233 when patient arousable by voice. O2 titrated to room air with sats WNL. No complaints of pain. Tolerating Ice chips. incisions dry and intact. Stable for transfer to inpatient room 225. Priyanka Godoy RN.
[2019-07-24] VITALS (9 sets, daily range): BP systolic 95–119; BP diastolic 52–71; PULSE 52–77; RESP 16–20; TEMP 36.6–37.2; O2SAT 95–99
[2019-07-24] MEDS: metroNIDAZOLE 500 MG/100 ML PIGGYBACK 100 MG IV ×3 (01:52→18:07)
[2019-07-24 05:55] LABS: Add Manual Diff / Slide Review NO; Basophils Absolute Auto 0 /uL (0-100); Basophils Percent Auto 0.2 % (0-2); Eosinophils Absolute Auto 0 /uL (0-450); Hematocrit 38.9 % (41-53); Hemoglobin 13.6 g/dL (13.5-17.5); Lymphocytes Absolute Auto 300 /uL (1100-4500); Lymphocytes Percent Auto 1.9 % (25-40); Mean Corpuscular HGB Conc 34.9 % (30-36); Mean Corpuscular Volume 86.1 fL (80-100); Monocytes Absolute Auto 400 /uL (0-900); Monocytes Percent Auto 3.2 % (3-14); Neutrophils Absolute Auto 13000 /uL (1500-7000); Neutrophils Percent Auto 94.7 % (50-75); Platelet Count 132 X10^3/uL (150-400); Red Blood Cell Count 4.52 X10^6/uL (4.5-5.9); Red Cell Distribution Width 13.1 % (11.6-14.8); White Blood Cell Count 13.7 X10^3/uL (4.5-11.0)
[2019-07-24 06:09] LABS: BUN Creatinine Ratio 13.8 (6-22); Blood Urea Nitrogen 11 mg/dL (9-20); Calcium 8.6 mg/dL (8.4-10.2); Carbon Dioxide 26 mmol/L (22-32); Chloride 105 mmol/L (98-107); Estimated Glomerular Filt Rate > 60.0 mL/min (>60); Glucose 144 mg/dL (70-100); HEMOLYSIS < 15 (0-50); Magnesium 1.5 mg/dL (1.6-2.3); Potassium 3.6 mmol/L (3.4-5.1); Sodium 141 mmol/L (137-145)
[2019-07-24] MEDS: HEPARIN 5,000 UNIT/ML VIAL 5000 UNIT SUBCUT ×3 (07:07→23:28)
[2019-07-24] MEDS: ACETAMINOPHEN 325 MG TABLET 650 MG PO ×4 (07:07→23:49)
--- NOTE | 2019-07-24 07:37 | PC.NURSE ---
Pt admitted as AxOx3, febrile at 101F, tylenol given and now afebrile. No complaints of pain. No nausea. Lap sites with surgi-glue are clean, dry, and intact. Abdomen distended. Pt feels like he needs to have a BM. LR@84mL/hr Clear Liquid diet tolerating- ate a jello and soup last night and did well with no issues. SCDs b/l on throughout the night.
[2019-07-24] MEDS: LACTOBACILLUS ACIDOPHILUS TABLET 1 EACH PO ×3 (09:27→17:22)
[2019-07-24] MEDS: METHOCARBAMOL 500 MG TABLET 750 MG PO ×4 (09:27→20:31)
--- NOTE | 2019-07-24 13:54 | PM.PN.1 ---
Subjective Date Patient Seen: 07/24/19 Time Patient Seen: 13:54 Interval history: Went to our yesterday emergently for sepsis with acute gangrenous appendicitis This morning feeling substantially improved, working on computer Pain minimal Overall feels quite good Exam Vital Signs (past 8 hours): - 07/24/19 07:58 07/24/19 08:36 07/24/19 11:27 Temperature 98.6 F 97.9 F Pulse Rate 57 L 52 L Respiratory Rate 17 16 Blood Pressure 98/57 L 114/59 L Pulse Oximetry 98 97 99 Oxygen Delivery Method Room Air Oxygen Flow Rate 0 Narrative Exam Narrative: Well-appearing man in no acute distress Breathing comfortably on room air Regular rate Abdomen moderately distended, minimally tender, wounds clean dry and intact -much improved over exam prior to surgery Garcia catheter in place draining clear yellow urine Periphery warm Objective Labs Result Diagrams: 07/24/19 05:34 07/24/19 05:34 Labs: Laboratory Results - last 24 hr 07/23/19 07/23/19 07/24/19 14:10 14:10 05:34 WBC 10.8 13.7 H RBC 5.16 4.52 Hgb 15.5 13.6 Hct 44.0 38.9 L MCV 85.3 86.1 MCH 30.0 30.0 MCHC 35.2 34.9 RDW 12.8 13.1 Plt Count 179 132 L Neut % (Auto) 80.9 H 94.7 H Lymph % (Auto) 12.2 L 1.9 L [place] % (Auto) 6.2 3.2 Eos % (Auto) 0.3 L 0.0 L Baso % (Auto) 0.4 0.2 Neut # (Auto) 8700 H 64975 H Lymph # (Auto) 1300 300 L [place] # (Auto) 700 400 Eos # (Auto) 0 0 Baso # (Auto) 0 0 Sodium 139 Potassium 3.4 Chloride 100 Carbon Dioxide 26 BUN 10 Creatinine 0.70 Estimated GFR > 60.0 BUN/Creatinine Ratio 14.3 Glucose 133 H Calcium 9.5 Magnesium Total Bilirubin 0.6 AST 28 ALT 29 Alkaline Phosphatase 84 Total Protein 8.1 Albumin 4.9 Globulin 3.2 Albumin/Globulin Ratio 1.5 Lipase 24 07/24/19 05:34 WBC RBC Hgb Hct MCV MCH MCHC RDW Plt Count Neut % (Auto) Lymph % (Auto) [place] % (Auto) Eos % (Auto) Baso % (Auto) Neut # (Auto) Lymph # (Auto) [place] # (Auto) Eos # (Auto) Baso # (Auto) Sodium 141 Potassium 3.6 Chloride 105 Carbon Dioxide 26 BUN 11 Creatinine 0.80 Estimated GFR > 60.0 BUN/Creatinine Ratio 13.8 Glucose 144 H Calcium 8.6 Magnesium 1.5 L Total Bilirubin AST ALT Alkaline Phosphatase Total Protein Albumin Globulin Albumin/Globulin Ratio Lipase Assessment & Plan Assessment & Plan narrative: 34-year-old man postop day 1. Status post laparoscopic appendectomy and abdominal washout for acute gangrenous appendicitis with sepsis. Sepsis physiology is now resolved -patient looks remarkably well -considering preop fever to 106 and tachycardia to nearly 150 Plan: Okay for general diet Continue IV ceftriaxone and metronidazole until white blood cell count normal and afebrile times 24 hours On probiotic Multi agent pain control Heparin for DVT prophylaxis Remove Garcia catheter today Okay to ambulate Quality VTE Deep Vein Thrombosis/Pulmonary Embolism Present on Admission: No
--- NOTE | 2019-07-24 13:57 | P.PN_ITS ---
Subjective Date Patient Seen: 07/24/19 Time Patient Seen: 13:54 Interval history: Went to our yesterday emergently for sepsis with acute gangrenous appendicitis This morning feeling substantially improved, working on computer Pain minimal Overall feels quite good Exam Vital Signs (past 8 hours): - 07/24/19 07:58 07/24/19 08:36 07/24/19 11:27 Temperature 98.6 F 97.9 F Pulse Rate 57 L 52 L Respiratory Rate 17 16 Blood Pressure 98/57 L 114/59 L Pulse Oximetry 98 97 99 Oxygen Delivery Method Room Air Oxygen Flow Rate 0 Narrative Exam Narrative: Well-appearing man in no acute distress Breathing comfortably on room air Regular rate Abdomen moderately distended, minimally tender, wounds clean dry and intact - much improved over exam prior to surgery Garcia catheter in place draining clear yellow urine Periphery warm Objective Labs Result Diagrams: 07/24/19 05:34 07/24/19 05:34 Labs: Laboratory Results - last 24 hr 07/23/19 07/23/19 07/24/19 14:10 14:10 05:34 WBC 10.8 13.7 H RBC 5.16 4.52 Hgb 15.5 13.6 Hct 44.0 38.9 L MCV 85.3 86.1 MCH 30.0 30.0 MCHC 35.2 34.9 RDW 12.8 13.1 Plt Count 179 132 L Neut % (Auto) 80.9 H 94.7 H Lymph % (Auto) 12.2 L 1.9 L [place] % (Auto) 6.2 3.2 Eos % (Auto) 0.3 L 0.0 L Baso % (Auto) 0.4 0.2 Neut # (Auto) 8700 H 40132 H Lymph # (Auto) 1300 300 L [place] # (Auto) 700 400 Eos # (Auto) 0 0 Baso # (Auto) 0 0 Sodium 139 Potassium 3.4 Chloride 100 Carbon Dioxide 26 BUN 10 Creatinine 0.70 Estimated GFR > 60.0 BUN/Creatinine Ratio 14.3 Glucose 133 H Calcium 9.5 Magnesium Total Bilirubin 0.6 AST 28 ALT 29 Alkaline Phosphatase 84 Total Protein 8.1 Albumin 4.9 Globulin 3.2 Albumin/Globulin Ratio 1.5 Lipase 24 07/24/19 05:34 WBC RBC Hgb Hct MCV MCH MCHC RDW Plt Count Neut % (Auto) Lymph % (Auto) [place] % (Auto) Eos % (Auto) Baso % (Auto) Neut # (Auto) Lymph # (Auto) [place] # (Auto) Eos # (Auto) Baso # (Auto) Sodium 141 Potassium 3.6 Chloride 105 Carbon Dioxide 26 BUN 11 Creatinine 0.80 Estimated GFR > 60.0 BUN/Creatinine Ratio 13.8 Glucose 144 H Calcium 8.6 Magnesium 1.5 L Total Bilirubin AST ALT Alkaline Phosphatase Total Protein Albumin Globulin Albumin/Globulin Ratio Lipase Assessment & Plan Assessment & Plan narrative: 34-year-old man postop day 1. Status post laparoscopic appendectomy and abdominal washout for acute gangrenous appendicitis with sepsis. Sepsis physiology is now resolved -patient looks remarkably well -considering preop fever to 106 and tachycardia to nearly 150 Plan: Okay for general diet Continue IV ceftriaxone and metronidazole until white blood cell count normal and afebrile times 24 hours On probiotic Multi agent pain control Heparin for DVT prophylaxis Remove Garcia catheter today Okay to ambulate Quality VTE Deep Vein Thrombosis/Pulmonary Embolism Present on Admission: No
--- NOTE | 2019-07-24 16:13 | CM.DANOTE ---
Addendum entered by Iman Azevedo LPN 07/25/19 12:33: Pt was taken to surgery 07/23 2200 to for laproscopic appendectomy and washout to treat acute appendicitis/gangrenous with sepsis. IV antibiotics were continued after surgery. Planned to check in with pt 07/24 and follow accordingly. Original Note: Discharge Planning/Care Management DCP: assessment: Case received, EMR reviewed. Discussed in Team Rounds. 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 He admitted last night to [facility] team: Dr. Davies with severe abdominal pain. Payer [employer]. Due to lateness of hour will continue this note in the morning. CM Discharge Assessment Start: 07/24/19 16:12 Freq: Status: Active Protocol: Document 07/24/19 16:12 ITV (Rec: 07/24/19 16:13 ITV [id number]) Discharge Planning Assessment Advance Directives? No History Provided By Medical Record Prior Living Arrangements House Household Members spouse children Independent with ADL's Yes Is patient alert and oriented? Yes Review Status In Process
[2019-07-24] MEDS: CEFTRIAXONE 2 GM/50 ML FROZ.PIGGY IV (17:22)
[2019-07-24] MEDS: LACTATED RINGERS 1,000 ML 25 ML IV (17:23)
[2019-07-24] MEDS: GABAPENTIN 300 MG CAPSULE 900 MG PO (20:31)
--- NOTE | 2019-07-25 00:05 | PC.NURSE ---
Addendum entered by Humera Cordon R.N. 07/25/19 06:32: States he slept well during the night. Incisional pain currently 2/10; medicated with scheduled Tylenol and doesn't feel he needs anything stronger. Original Note: Patient is alert and oriented. Breath sounds diminished but CTA with RA sat of 95%. HRR. Denies nausea. BT present and is passing flatus. Abdomen is mildly distended and tender at incision sited. 3 lap sites dermabonded with no signs of redness or drainage. Denies dysuria, frequency or urgency and is using urinal to void; urine is dark jessica. Independent with mobility. Denies pain. Agreeable to having SCD's placed for night. Fall risk score is low.
[2019-07-25] MEDS: metroNIDAZOLE 500 MG/100 ML PIGGYBACK 100 MG IV ×3 (01:56→17:23)
[2019-07-25 05:32] VITALS: BP 111/64; PULSE 66; RESP 18; TEMP 36.5; O2SAT 98
[2019-07-25 05:37] LABS: Add Manual Diff / Slide Review NO; Basophils Absolute Auto 0 /uL (0-100); Basophils Percent Auto 0.6 % (0-2); Eosinophils Absolute Auto 0 /uL (0-450); Eosinophils Percent Auto 0.7 % (2-4); Hematocrit 36.2 % (41-53); Hemoglobin 12.8 g/dL (13.5-17.5); Lymphocytes Absolute Auto 900 /uL (1100-4500); Lymphocytes Percent Auto 13.8 % (25-40); Mean Corpuscular HGB Conc 35.3 % (30-36); Mean Corpuscular Hemoglobin 30.3 PG (26-34); Mean Corpuscular Volume 85.8 fL (80-100); Monocytes Absolute Auto 400 /uL (0-900); Monocytes Percent Auto 5.9 % (3-14); Neutrophils Absolute Auto 5400 /uL (1500-7000); Platelet Count 107 X10^3/uL (150-400); Red Blood Cell Count 4.21 X10^6/uL (4.5-5.9); Red Cell Distribution Width 13.4 % (11.6-14.8); White Blood Cell Count 6.9 X10^3/uL (4.5-11.0)
[2019-07-25] MEDS: ACETAMINOPHEN 325 MG TABLET 650 MG PO (06:19)
[2019-07-25] MEDS: HEPARIN 5,000 UNIT/ML VIAL 5000 UNIT SUBCUT (06:25)
[2019-07-25 08:25] VITALS: BP 109/58; PULSE 50; RESP 17; TEMP 36.8; O2SAT 97
[2019-07-25 09:00] VITALS: O2SAT 97
[2019-07-25] MEDS: LACTOBACILLUS ACIDOPHILUS TABLET 1 EACH PO (09:58)
[2019-07-25] MEDS: METHOCARBAMOL 500 MG TABLET 750 MG PO (09:58)
--- NOTE | 2019-07-25 10:41 | PM.DS.1 ---
History of Present Illness Date Patient Seen: 07/25/19 Time Patient Seen: 10:42 Chief complaint: severe abdominal pain Narrative: 34-year-old white male admitted with acute gangrenous appendicitis underwent a laparoscopic appendectomy on admission. That night he had a stormy course with very high fevers and tachycardia. This however subsided with treatment using IV fluids and antibiotics for a robotic an anaerobic coverage. I do not find intra operative cultures. Patient has been afebrile for the last 2 days. White count has returned to normal. He is enjoying normal GI function on a regular diet. Had a bowel movement this morning. Trocar sites look good. Will be discharged today on Augmentin 875 b.i.d. Discharge Providers Date of admission: 07/23/19 17:33 Discharge Date: 07/25/19 Primary care physician: Dorene Elizalde DO Discharge provider: Ganesh Bell MD Summary Discharge Diagnosis: Acute gangrenous appendicitis Hospital Course: As mentioned above patient had a laparoscopic appendectomy for gangrenous appendicitis. That night he had high fever and tachycardia which subsided with dual antibiotic therapy ceftriaxone and Flagyl. Patient has been afebrile for 48 hours and his white count is normal today. He had a normal BM this morning and is on a regular solid diet. He is ambulating well in the halls on his own. He is able to be discharged today. I do not see intraoperative cultures and I selected Augmentin 875 b.i.d. as his post hospital antibiotic therapy. He will be seen back in the clinic in a week. Status at Discharge Cognitive/behavioral status at discharge: oriented Functional status at discharge: independent ambulation Overall status at discharge: patient is back to baseline Time Spent with Patient Greater than 30 minutes Exam Vital Signs (past 8 hours): - 07/25/19 05:32 07/25/19 08:25 07/25/19 09:00 Temperature 97.7 F 98.2 F Pulse Rate 66 50 L Respiratory Rate 18 17 Blood Pressure 111/64 109/58 L Pulse Oximetry 98 97 97 Oxygen Delivery Method Room Air Oxygen Flow Rate 0 Objective Labs Result Diagrams: 07/25/19 05:19 07/24/19 05:34 Labs: Laboratory Results - last 24 hr 07/25/19 05:19 WBC 6.9 RBC 4.21 L Hgb 12.8 L Hct 36.2 L MCV 85.8 MCH 30.3 MCHC 35.3 RDW 13.4 Plt Count 107 L Neut % (Auto) 79.0 H Lymph % (Auto) 13.8 L [place] % (Auto) 5.9 Eos % (Auto) 0.7 L Baso % (Auto) 0.6 Neut # (Auto) 5400 Lymph # (Auto) 900 L [place] # (Auto) 400 Eos # (Auto) 0 Baso # (Auto) 0 Discharge Plan Discharge Plan Patient Disposition: Home Discharge Med Rec/Prescriptions Prescriptions: New amoxicillin-pot clavulanate 875-125 mg tablet 1 tab PO BID Qty: 14 RF: 0 Follow up/Referrals: Dorene Elizalde DO [Primary Care Provider] - Provider Discharge Instructions Diet: Diet as Tolerated Skin/Wound/Dressing Care Report to your healthcare provider any signs of infection, such as:: chills, fever, night sweats, increased pain, unusual drainage and unusual redness Dressing: cover as needed Other wound treatment: bathe normally Discharge Data Primary Care Provider: Dorene Elizalde Attending Provider: Pelon Corey Admit Date/Time: 07/23/19 17:33 Quality VTE Deep Vein Thrombosis/Pulmonary Embolism Present on Admission: No
[2019-07-25] MEDS: CIPROFLOXACIN 500 MG TABLET PO (11:18)
--- NOTE | 2019-07-25 12:07 | PC.NURSE ---
Day shift: Pt taken to private car driven by spouse by this gag writer in . Paperwork signed and all questions answered. Pt has all personal belongings. script electronic transferred to [place].
--- NOTE | 2019-07-25 12:39 | CM.DPC ---
DCP: continued: case was discussed this morning in Team Rounds and with Dr. Barragan expected to see today as rounding surgeon. Pt had been up and ambulating in halls today. Went to room now to check in with pt. LEESA Jean-Baptiste noted that Dr. Barragan had been here, ok'd pt for home and that pt had just been out to his car with his driving him home. A clinic appt at [facility] was set up in followup. No concerns re the dc today were noted by the care team members.
[2019-07-25 16:44] VITALS: BMI 24.5
--- NOTE | 2019-07-25 17:01 | PC.NURSE ---
Pt ambulatory into room. Supportive at bedside. IV started in left forearm. Pt c/o generalized feeling unwell. Reports 7 bowel movements, liquid/loose since discharge along with fever and chills. Temp 99.9 temporal. C/o lower abd discomfort 4 of 10. Reoriented to room, routine, safety and call light use. Call light in reach.
[2019-07-25 17:19] VITALS: BP 131/65; PULSE 65; RESP 20; TEMP 37.7; O2SAT 97
--- NOTE | 2019-07-25 17:20 | P.HP_ITS ---
History of Present Illness Date Patient Seen: 07/25/19 Time Patient Seen: 17:15 Chief complaint: Appendectomy Narrative: 34-year-old white male had an laparoscopic appendectomy 3 nights ago was septic at that time and recovered nicely and had been afebrile for 36 hours prior to being discharged this morning. This afternoon about 4:00 p.m. he his called me and said that he was having shaking chills and feeling poorly so I have readmitted him for IV antibiotic therapy with suspected diagnosis of sepsis. Patient had a normal bowel movement this morning and had several diarrhea stools this afternoon. No nausea vomiting minimal abdominal pain. Patient History Medical History Arm fracture, left (Resolved 1996) Chicken pox (Resolved 1993) Surgical History Anesthesia (Resolved) History of third molar tooth extraction (Resolved 2003) S/P tonsillectomy (Resolved) Family History Grandfather Hypertension High cholesterol Diabetes mellitus Heart disease Grandmother Age: 91 Hypertension High cholesterol Diabetes mellitus Stroke Brother No problems noted. Father Collapsed lung Mother Melanoma Sjogren's syndrome Grandfather No problems noted. Grandmother No problems noted. Sister No problems noted. Social History household members: spouse and children Smoking Status: Never smoker alcohol intake: current Family & Social History Family History Grandfather Hypertension High cholesterol Diabetes mellitus Heart disease Grandmother Age: 91 Hypertension High cholesterol Diabetes mellitus Stroke Brother No problems noted. Father Collapsed lung Mother Melanoma Sjogren's syndrome Grandfather No problems noted. Grandmother No problems noted. Sister No problems noted. Social History: household members spouse,children Prior Living Arrangements House Safety & Behavioral: Feels Safe in Current Yes Environment Been Physically Hurt or No Threatened By a Person Suicidal Ideation Description None Tobacco & Substance use: Smoking Status Never smoker alcohol intake current alcohol intake frequency a few times a week Substance Use Type does not use Meds Home Medications Medication Instructions Recorded Confirmed Type amoxicillin-pot clavulanate 1 tab PO BID #14 tab 07/25/19 Rx Allergies Allergy/AdvReac Type Severity Reaction Status Date / Time No Known Drug Allergies Allergy Verified 07/23/19 14:16 Review of Systems Review of Systems All systems reviewed & are unremarkable except as noted in HPI and below Exam Narrative Exam Narrative: Patient is resting comfortably in bed with minimal abdominal pain he is alert and oriented. Blood pressure 130/60 Heart rate 65 Respirations normal at 16 to 18 0 2 set normal on room air Lungs are clear with no rales or wheezes Heart regular rhythm no murmur Abdomen very mildly distended soft normal trocar site tenderness with no surrounding erythema Active bowel sounds Assessment & Plan Assessment & Plan narrative: Patient readmitted after being discharged this morning afebrile with a normal white count. Reported shaking chills this af ternoon. He is readmitted with suspected ongoing sepsis and will be treated with IV Zosyn and IV Flagyl. Quality VTE Deep Vein Thrombosis/Pulmonary Embolism Present on Admission: No
[2019-07-25] MEDS: SODIUM CHLORIDE 0.9% 1,000 ML 100 ML IV (17:23)
[2019-07-25] MEDS: ENOXAPARIN 40 MG/0.4 ML SYRINGE SUBCUT (17:40)
[2019-07-25 18:07] LABS: Add Manual Diff / Slide Review NO; Basophils Absolute Auto 0 /uL (0-100); Basophils Percent Auto 0.6 % (0-2); Eosinophils Absolute Auto 100 /uL (0-450); Eosinophils Percent Auto 1.5 % (2-4); Hematocrit 37.6 % (41-53); Lymphocytes Absolute Auto 800 /uL (1100-4500); Lymphocytes Percent Auto 14.9 % (25-40); Mean Corpuscular HGB Conc 34.5 % (30-36); Mean Corpuscular Hemoglobin 29.8 PG (26-34); Mean Corpuscular Volume 86.4 fL (80-100); Monocytes Absolute Auto 400 /uL (0-900); Neutrophils Absolute Auto 4200 /uL (1500-7000); Platelet Count 124 X10^3/uL (150-400); Red Blood Cell Count 4.36 X10^6/uL (4.5-5.9); Red Cell Distribution Width 13.4 % (11.6-14.8); White Blood Cell Count 5.5 X10^3/uL (4.5-11.0)
[2019-07-25 18:19] LABS: BUN Creatinine Ratio 17.1 (6-22); Blood Urea Nitrogen 12 mg/dL (9-20); Calcium 8.1 mg/dL (8.4-10.2); Carbon Dioxide 28 mmol/L (22-32); Chloride 106 mmol/L (98-107); Estimated Glomerular Filt Rate > 60.0 mL/min (>60); Glucose 104 mg/dL (70-100); HEMOLYSIS < 15 (0-50); Potassium 3.5 mmol/L (3.4-5.1); Sodium 139 mmol/L (137-145)
[2019-07-25] MEDS: IBUPROFEN 600 MG TABLET PO (18:19)
[2019-07-25] MEDS: PIPERACILLIN-TAZO 4.5 GM/100 ML FROZ.PIGGY IV (18:58)
[2019-07-25 19:40] LABS: Bacteria Urine None Seen; RBC Urine None Seen (0-5/HPF)
[2019-07-25 19:41] LABS: Appearance Urine UA CLEAR; Bilirubin Urine UA NEGATIVE (NEGATIVE); Color Urine UA YELLOW; Glucose Urine UA NEGATIVE (Negative); Ketones Urine UA NEGATIVE (NEGATIVE); Leukocyte Esterase Urine UA NEGATIVE (NEGATIVE); Nitrite Urine UA NEGATIVE (Negative); Occult Blood Urine UA NEGATIVE (Negative); Protein Urine UA NEGATIVE (Negative); Urobilinogen Urine UA 0.2 E.U./dL (0.2); pH Urine UA 7.5 (4.5-8.0)
[2019-07-25 19:48] LABS: Culture Indicated Urine Cult Not Indicated; Squamous Epithelial Cell Urine 0-1 /HPF (0-5/HPF); WBC Urine 0-1/HPF (0-5/HPF)
[2019-07-25 20:37] VITALS: BP 113/59; PULSE 50; RESP 18; TEMP 37.1
--- NOTE | 2019-07-25 22:17 | PC.NURSE ---
Lavinia shift note: Watery stool x 2 this shift.
[2019-07-25 23:00] VITALS: O2SAT 96
[2019-07-26] VITALS (11 sets, daily range): BP systolic 120–139; BP diastolic 68–78; PULSE 46–60; RESP 15–18; TEMP 36.4–38.4; O2SAT 96–100
[2019-07-26] MEDS: PIPERACILLIN-TAZO 4.5 GM/100 ML FROZ.PIGGY IV ×3 (00:47→18:56)
[2019-07-26] MEDS: metroNIDAZOLE 500 MG/100 ML PIGGYBACK 100 MG IV ×3 (01:35→17:20)
[2019-07-26] MEDS: SODIUM CHLORIDE 0.9% 1,000 ML 100 ML IV ×2 (06:36→21:10)
--- NOTE | 2019-07-26 08:36 | CM.DANOTE ---
DCP: Case received, EMR reviewed and met with patient. Introduced self and role. Was able to obtain baseline health history from patient. DCP assessment completed with information currently available. Patient is a 34 year old male who admitted yesterday afternoon to the care of the surgical team. Patient had been here a couple of days ago with an appendectomy. PCP: Dr. Elizalde. Payer: confirmed: [employer]. Patient came to the hospital via family vehicle due to fever. He had been discharged here a couple of days ago after having a laparoscopic appendectomy. Patient had been having chills, and weakness, and came back to the hospital for IV antibiotics, secondary to possible sepsis. Met with patient in his room, pleasant. He resides here in [place] with his spouse, Jennyfer. Patient is currently employed with [place] [employer]. P: DCP to continue to follow. Patient is here on IV antibiotics. He should be able to go home when he is medically stable. Mandy Hurt RN/Diesel Engine Fitter
[2019-07-26] MEDS: ENOXAPARIN 40 MG/0.4 ML SYRINGE SUBCUT (08:40)
--- NOTE | 2019-07-26 10:59 | PC.NURSE ---
Addendum entered by Emily Aleman R.N. 07/26/19 11:38: changed dressing to right lower quad due to increased strike thru bloody drainage- pt has gotten up to urinate and moved bowels as well Original Note: pt denies pain, abd with lap sites closed with dermabond, he does have abdomen distention mostly soft and nontender to palpation- small diarrhea stool this am and voiding well per urinal- tolerating full liquid diet without nausea and actually hungry fro advanced diet- ns continues as well as iv abx- pt up ambulating about in the hallway
[2019-07-26] MEDS: ACETAMINOPHEN 325 MG TABLET 650 MG PO (18:57)
--- NOTE | 2019-07-26 19:50 | PC.NURSE ---
Patient currently resting in bed. Denies any pain or needs at this time. Temperature taken, 98.7 oral, patient denies feeling feverish and is tolerating antibiotics well.
[2019-07-27] VITALS (8 sets, daily range): BP systolic 120–137; BP diastolic 59–82; PULSE 19–60; RESP 15–18; TEMP 36.3–37.1; O2SAT 97–100
[2019-07-27] MEDS: PIPERACILLIN-TAZO 3.375 GM/50 ML FROZ.PIGGY IV ×4 (00:34→18:41)
[2019-07-27] MEDS: metroNIDAZOLE 500 MG/100 ML PIGGYBACK 100 MG IV ×2 (01:13→08:36)
[2019-07-27] MEDS: SODIUM CHLORIDE 0.9% 1,000 ML 100 ML IV (08:34)
[2019-07-27] MEDS: ENOXAPARIN 40 MG/0.4 ML SYRINGE SUBCUT (08:37)
--- NOTE | 2019-07-27 10:45 | PC.NURSE ---
Day shift: Pt resting in bed. Denies any pain or nausea. Pt does report multiple loose stools. The 3 lap sites show no s/s of infection. Spouse in room for support. Makes needs known. IV fluids per MAR. Independent in room. Has ambulated in halls. Tolerated well.
--- NOTE | 2019-07-27 11:50 | P.PN_ITS ---
Subjective Date Patient Seen: 07/27/19 Time Patient Seen: 11:45 Interval history: Feeling well, hungery, having loose bowel movements Some fatiuge No abdominal pain Last fever to 101 noted at aprox 5pm yesterday Exam Vital Signs (past 8 hours): - 07/27/19 07:41 07/27/19 08:38 Temperature 97.8 F Pulse Rate 50 L Respiratory Rate 15 Blood Pressure 125/74 Pulse Oximetry 98 100 Oxygen Delivery Method Room Air Oxygen Flow Rate 0 Narrative Exam Narrative: well appering NAD on RA, breathing easily RRR Abd soft, nontender, v minimally distended. port sites CDI no edema/erythema periphery warm Objective Labs Result Diagrams: 07/25/19 17:58 07/25/19 17:58 Assessment & Plan Assessment & Plan narrative: 34 yo man HD3 readmitted for fevers at home after lap appy for gangrenous appendicitis POD4. Initial hospitalizaiton with sepsis. Suspect duration of initial IV antibiotic inadiquate for presumed bacteremia. Pt has started Rx Augmentin at time of fevers on readmission. Today well Plan: Last fever less than 48hrs ago - will continue IV abx Continue IV pip/godwin, stop metronidazole - redundant anerobic coverage Start probiotic TKO IV OK for general diet Activity as tolerated Enoxaparin for DVT proph Quality VTE Deep Vein Thrombosis/Pulmonary Embolism Present on Admission: No
[2019-07-27] MEDS: LACTOBACILLUS ACIDOPHILUS TABLET 1 EACH PO ×2 (13:14→16:53)
[2019-07-28] VITALS (9 sets, daily range): BP systolic 114–141; BP diastolic 51–79; PULSE 48–60; RESP 16–18; TEMP 36.5–36.9; O2SAT 97–100
[2019-07-28] MEDS: PIPERACILLIN-TAZO 3.375 GM/50 ML FROZ.PIGGY IV ×3 (00:26→19:14)
--- NOTE | 2019-07-28 03:18 | PC.NURSE ---
AxOx3, reports no pain or nausea. Tolerating diet IVF running NS@25mL/hr Pt reports having loose stools Afebrile
[2019-07-28] MEDS: SODIUM CHLORIDE 0.9% 1,000 ML 100 ML IV ×2 (08:52→20:48)
[2019-07-28] MEDS: ENOXAPARIN 40 MG/0.4 ML SYRINGE SUBCUT (08:52)
[2019-07-28] MEDS: LACTOBACILLUS ACIDOPHILUS TABLET 1 EACH PO ×3 (08:52→17:12)
--- NOTE | 2019-07-28 15:15 | P.PN_ITS ---
Exam Vital Signs (past 8 hours): - 07/28/19 08:00 07/28/19 12:00 07/28/19 12:38 Temperature 97.8 F 97.9 F Pulse Rate 55 L 52 L Respiratory Rate 16 16 Blood Pressure 117/73 117/51 L Pulse Oximetry 97 99 98 Oxygen Delivery Method Room Air Oxygen Flow Rate 0 Objective Labs Result Diagrams: 07/25/19 17:58 07/25/19 17:58 Assessment & Plan Assessment & Plan narrative: 34 yo man HD4 readmitted for fevers at home after lap appy for gangrenous appendicitis POD5. Initial hospitalizaiton with sepsis. Suspect duration of initial IV antibiotic inadiquate for presumed bacteremia. Pt has started Rx Augmentin at time of fevers on readmission. Now quite well, will be afebrile x 48hrs late this evening Plan: Plan on discharge tomorrow morning with IV abx until that time Continue IV pip/godwin probiotic TKO IV on general diet - food from home is OK Activity as tolerated Enoxaparin for DVT proph Quality VTE Deep Vein Thrombosis/Pulmonary Embolism Present on Admission: No
[2019-07-28] MEDS: SODIUM CHLORIDE 0.9% 1,000 ML 25 ML IV (21:21)
[2019-07-29 01:00] VITALS: BP 109/57; PULSE 51; RESP 18; TEMP 36.7; O2SAT 98
[2019-07-29] MEDS: PIPERACILLIN-TAZO 3.375 GM/50 ML FROZ.PIGGY IV ×2 (01:02→06:11)
[2019-07-29 05:00] VITALS: BP 122/58; PULSE 52; RESP 18; TEMP 36.7; O2SAT 96
[2019-07-29 07:49] VITALS: O2SAT 98
[2019-07-29 08:00] VITALS: BP 109/61; PULSE 55; RESP 16; TEMP 36.6; O2SAT 97
[2019-07-29] MEDS: LACTOBACILLUS ACIDOPHILUS TABLET 1 EACH PO (08:46)
[2019-07-29] MEDS: ENOXAPARIN 40 MG/0.4 ML SYRINGE SUBCUT (08:54)
--- NOTE | 2019-07-29 10:04 | P.DS_ITS ---
History of Present Illness History of Present Illness Date Patient Seen: 07/29/19 Time Patient Seen: 10:04 Chief complaint: Appendectomy Discharge Providers Provider Date of admission: 07/25/19 16:30 Discharge Date: 07/29/19 Primary care physician: Dorene Elizalde DO Discharge provider: Pelon Corey Summary Hospital Course Discharge Diagnosis: Sepsis Status post recent appendectomy Hospital Course: 34-year-old man re-presented to the hospital after discharge the same day -was postop day 2 status post laparoscopic appendectomy for gang renous appendicitis -he was afebrile and his white blood cell count had normalized. However at home upon stopping IV antibiotics and starting on p.o. Augmentin patient developed fevers malaise and rigors -he re-presented to the emergency department and was admitted. He was started on IV pip/godwin -and improved. He did go on to have additional fevers at evening but then defervesced. He was kept on IV antibiotics until 48 hours beyond his last fever. He felt well at this time without pain in his abdomen, his incisions always looked good. I suspect he had incompletely treated bacteremia from his gangrenous appendicitis. Upon discharge plan to continue p.o. Augmentin -for a total antibiotic duration of 14 days Status at Discharge Cognitive/behavioral status at discharge: oriented Functional status at discharge: independent ambulation Overall status at discharge: patient is progressing back to baseline Time Spent with Patient Time spent: Less than 30 minutes Exam Vital Signs (past 8 hours): - 07/29/19 05:00 07/29/19 07:49 07/29/19 08:00 Temperature 98.1 F 97.9 F Pulse Rate 52 L 55 L Respiratory Rate 18 16 Blood Pressure 122/58 L 109/61 Pulse Oximetry 96 98 97 Oxygen Delivery Method Room Air Oxygen Flow Rate 0 Narrative Exam Narrative: Well-appearing man in no acute distress he looks vigorous Breathing comfortably on room Regular rate and rhythm Abdomen soft nontender nondistended -incisions are clean dry and intact. No tenderness with even substantial deep palpation in the right lower quadrant Objective Labs Result Diagrams: 07/25/19 17:58 07/25/19 17:58 Discharge Plan Discharge Plan Patient Disposition: Home Discharge Med Rec/Prescriptions Prescriptions: Continued amoxicillin-pot clavulanate 875-125 mg tablet 1 tab PO BID Qty: 14 RF: 0 Follow up/Referrals: Dorene Elizalde DO [Primary Care Provider] - Provider Discharge Instructions Diet: Diet as Tolerated Activity: no soaking wounds in water until 2 weeks after surgery. No lifting over 15lbs for 6 weeks after surgery Skin/Wound/Dressing Care Report to your healthcare provider any signs of infection, such as:: chills, fever and increased pain Visit Report/Discharge Packet Instructions: Acidophilus and Other Probiotics (Alternative Therapy) Discharge Data Primary Care Provider: Dorene Elizalde Quality VTE Deep Vein Thrombosis/Pulmonary Embolism Present on Admission: No
--- NOTE | 2019-07-29 10:22 | PC.NURSE ---
Day shift: Paperwork signed and all questions answered. Pt has all personal belongings. Pt has filled scrips at home. Taken to car via WC. Pt's spouse will drive Pt home.
== END 2019-07-29 10:24 | disposition home or self-care (01) | DRG 343 ==
LOC: ED 16:57 → AC 17:37
PROVIDERS: Surgery; Admitting Provider Surgery; Emergency Provider Nurse Practitioner Family; PCP Family Medicine; Visit Provider Surgery
PROC: 0DTJ4ZZ Resection of Appendix, Percutaneous Endoscopic Approach (ICD-10-PCS; CPT 44970; principal; 2019-07-24 08:00)
DX: K35.891 Other acute appendicitis without perforation, with gangrene (principal); R50.9 Fever, unspecified; R00.0 Tachycardia, unspecified; R19.7 Diarrhea, unspecified
CPT/HCPCS: 36415; 36591; 44970; 74177; 80048; 80053; 81001; 81003; 83690; 83735; 85025; 87045; 87177; 87899; 96374; 96375; 99220; 99283; 99285; G0378; J0330; J0696; J1100; J1170; J1644; J1650; J1885; J2250; J2270; J2405; J2543; J2704; J3010; Q9967

== ENCOUNTER → 2021-02-07 07:25 | Outpatient (CLI) | payer OTHER, SELFPAY ==
[2019-07-29 14:37] VITALS: BMI 24.5
[2021-02-07] MEDS: COVID-19 VACC, Ad26(JANSSEN)/PF 0.5 ML IM (07:35)
== END ==
PROVIDERS: PCP Family Medicine; Visit Provider Internal Medicine
DX: Z23 Encounter for immunization (principal)
CPT/HCPCS: 0031A; 91303

== ENCOUNTER → 2021-08-06 09:04 | Outpatient (CLI) | payer OTHER, SELFPAY ==
[2019-07-29 14:37] VITALS: BMI 24.5
[2021-08-06 09:39] LABS: COVID19 -Nasal RAPID Negative (Negative)
== END ==
PROVIDERS: PCP Family Medicine; Visit Provider Nurse Practitioner Family
DX: R19.7 Diarrhea, unspecified (principal); R50.9 Fever, unspecified; Z20.822 Contact with and (suspected) exposure to COVID-19
CPT/HCPCS: 87635

== ENCOUNTER → 2023-09-01 08:33 | Outpatient (CLI) | payer OTHER, SELFPAY ==
[2019-07-29 14:37] VITALS: BMI 24.5
[2023-09-01 09:51] LABS: Add Manual Diff / Slide Review NO; Basophils Absolute Auto 0 /uL (0-100); Basophils Percent Auto 0.6 % (0-2); Eosinophils Absolute Auto 100 /uL (0-450); Eosinophils Percent Auto 3.2 % (2-4); Hematocrit 45.6 % (41-53); Hemoglobin 15.4 g/dL (13.5-17.5); Lymphocytes Absolute Auto 1400 /uL (1100-4500); Lymphocytes Percent Auto 33.4 % (25-40); Mean Corpuscular HGB Conc 33.8 % (30-36); Mean Corpuscular Volume 88.7 fL (80-100); Monocytes Absolute Auto 200 /uL (0-900); Neutrophils Absolute Auto 2400 /uL (1500-7000); Neutrophils Percent Auto 57.8 % (50-75); Platelet Count 163 X10^3/uL (150-400); Red Blood Cell Count 5.14 X10^6/uL (4.5-5.9); Red Cell Distribution Width 13.1 % (11.6-14.8); White Blood Cell Count 4.1 X10^3/uL (4.5-11.0)
[2023-09-01 09:58] LABS: Hemoglobin A1C% w Est Avg Glu 5.4 % (4.0-6.0)
[2023-09-01 10:16] LABS: Alanine Aminotransferase 29 IU/L (<50); Albumin 4.4 g/dL (3.5-5.0); Albumin Globulin Ratio 1.5 (1.0-2.8); Alkaline Phosphatase 58 U/L (38-126); Aspartate Aminotransferase 28 IU/L (17-59); BUN Creatinine Ratio 13.9 (6-22); Bilirubin Total 0.7 mg/dL (0.2-1.3); Blood Urea Nitrogen 11 mg/dL (9-20); Calcium 9.4 mg/dL (8.4-10.2); Carbon Dioxide 29 mmol/L (22-32); Chloride 101 mmol/L (98-107); Cholesterol 147 mg/dL (140-199); Estimated Glomerular Filt Rate > 60 mL/min (>60); Globulin 2.9 g/dL (1.7-4.1); Glucose 82 mg/dL (70-100); HDL Cholesterol 47 mg/dL (40-60); HEMOLYSIS 17 (0-50); LDL Cholesterol Calculated 76 mg/dL (<100); Potassium 4.3 mmol/L (3.4-5.1); Sodium 137 mmol/L (137-145); Total Protein 7.3 g/dL (6.3-8.2); Triglycerides 121 mg/dL (35-150)
[2023-09-01 16:10] LABS: HIV 1 & 2 Ab/Ag 4th Gen Combo NEGATIVE (NEGATIVE); Hep C Virus Ab w/Reflex Quant NEGATIVE s/c (NEGATIVE)
== END ==
PROVIDERS: PCP Family Medicine; Referring Provider Family Medicine; Visit Provider Family Medicine
DX: Z00.00 Encounter for general adult medical examination without abnormal findings (principal)
CPT/HCPCS: 36415; 80053; 80061; 83036; 85025; 86803; 87389

== ENCOUNTER 2023-09-02 10:48 | Emergency (ER) | payer OTHER, SELFPAY ==
[2019-07-29 14:37] VITALS: BMI 24.5
[2023-09-02] VITALS (7 sets, daily range): BP systolic 116–141; BP diastolic 57–72; PULSE 53–60; RESP 12–17; TEMP 36.9; O2SAT 95–100; BMI 23.7
--- NOTE | 2023-09-02 11:00 | ED_ITS ---
HPI - General Adult General Chief complaint: Dizziness Stated complaint: lightheaded/disoriented/weak Time Seen by Provider: 09/02/23 10:51 Source: patient Mode of arrival: Ambulatory Limitations: no limitations History of Present Illness HPI narrative: Patient is a 38-year-old male. He is here for evaluation of a fairly sudden onset being lightheaded, some nonspecific vision changes. He denies chest pain and shortness of breath. No abdominal pain or nausea or vomiting. No other reported neurologic symptoms. He is no history of anxiety. He had blood drawn yesterday at a routine doctor's appointment and he states he felt similar to this yesterday but today is much worse. Has been under quite a bit of stress at work recently. Related Data Home Medications Medication Instructions Recorded Confirmed fexofenadine 180 mg tablet 180 mg PO DAILY 09/01/23 09/01/23 (Nikki Allergy) multivitamin (Daily Multi-Vitamin 1 tab PO DAILY 09/01/23 09/01/23 tablet) Allergies Allergy/AdvReac Type Severity Reaction Status Date / Time No Known Drug Allergies Allergy Verified 09/02/23 11:13 Review of Systems Review of Systems ROS Unobtainable: All systems reviewed & are unremarkable except as noted in HPI and below Patient History Medical History (Updated 09/02/23 @ 13:18 by Harrison Ponce DO) Arm fracture, left (1996) Chicken pox (1993) Surgical History Anesthesia History of third molar tooth extraction (2003) S/P tonsillectomy Family History Grandfather Hypertension High cholesterol Diabetes mellitus Heart disease Grandmother Age: 95 Hypertension High cholesterol Diabetes mellitus Stroke Brother No problems noted. Father Collapsed lung Mother Melanoma Sjogren's syndrome Grandfather No problems noted. Grandmother No problems noted. Sister No problems noted. Social History household members: spouse and children Smoking Status: Never smoker alcohol intake: current Smoking Status: Never smoker alcohol intake frequency: a few times a week Substance Use Type: does not use Exam Initial Vital Signs Initial Vital Signs: Vital Signs Temperature 98.4 F 09/02/23 10:50 Pulse Rate 60 09/02/23 10:50 Respiratory Rate 16 09/02/23 10:50 Blood Pressure 141/72 H 09/02/23 10:50 Pulse Oximetry 100 09/02/23 10:50 Oxygen Delivery Method Room Air 09/02/23 10:50 Const General: cooperative, comfortable and No ill appearing HENIN Head: normal to inspection and normocephalic Resp Effort & Inspection: normal respiratory effort Auscultation: clear to auscultation bilaterally Cardio Rate: regular rate Rhythm: regular rhythm GI Inspection: normal to inspection and non-distended Skin General: no rashes or lesions noted Neuro General: patient alert, patient awake and moves all extremities Extrem General: capillary refill normal Course Orders Ordered: ED Orders 09/02/23 11:05 Complete Blood Count AUTO DIFF Stat Comprehensive Metabolic Panel Stat Ethanol (ETOH) Stat Lipase Stat 09/02/23 11:44 EKG-12 Lead Stat Discontinued Medications Sodium Chloride (Normal Saline 0.9%) 1,000 mls @ 1,000 mls/hr IV BOLUS ONE Stop: 09/02/23 11:59 Last Infusion: 09/02/23 12:49 Dose: 0 mls/hr Documented By: Admin: 09/02/23 11:18 Dose: 1,000 mls/hr Documented By: AMV Vital Signs Vital signs: Vital Signs - 8 hr 09/02/23 10:50 09/02/23 11:23 09/02/23 11:30 Temperature 98.4 F Pulse Rate 60 58 L 54 L Respiratory Rate 16 12 14 Blood Pressure 141/72 H Pulse Oximetry 100 97 98 Oxygen Delivery Method Room Air 09/02/23 11:31 09/02/23 11:31 09/02/23 12:00 Temperature Pulse Rate 57 L Respiratory Rate 14 Blood Pressure 116/57 L 120/70 Pulse Oximetry 99 Oxygen Delivery Method 09/02/23 12:00 09/02/23 12:30 09/02/23 12:30 Temperature Pulse Rate 55 L 59 L Respiratory Rate 14 17 Blood Pressure 123/65 Pulse Oximetry 100 98 Oxygen Delivery Method Medical Decision Making Lab Data Lab results reviewed: Yes I reviewed the patient's lab results. 09/02/23 11:05 09/02/23 11:05 Labs: Lab Results 09/02/23 09/02/23 Range/Units 11:05 11:05 WBC 4.6 (4.5-11.0) X10^3/uL RBC 5.12 (4.5-5.9) X10^6/uL Hgb 15.5 (13.5-17.5) g/dL Hct 45.8 (41-53) % MCV 89.4 (80-100) fL MCH 30.4 (26-34) PG MCHC 34.0 (30-36) % RDW 12.9 (11.6-14.8) % Plt Count 175 (150-400) X10^3/uL Neut % (Auto) 59.5 (50-75) % Lymph % (Auto) 32.1 (25-40) % [place] % (Auto) 5.1 (3-14) % Eos % (Auto) 2.6 (2-4) % Baso % (Auto) 0.7 (0-2) % Neut # (Auto) 2700 (1913-1167) /uL Lymph # (Auto) 1500 (6032-4313) /uL [place] # (Auto) 200 (0-900) /uL Eos # (Auto) 100 (0-450) /uL Baso # (Auto) 0 (0-100) /uL Sodium 138 (137-145) mmol/L Potassium 3.9 (3.4-5.1) mmol/L Chloride 101 (98-107) mmol/L Carbon Dioxide 27 (22-32) mmol/L BUN 10 (9-20) mg/dL Creatinine 0.79 (0.66-1.25) mg/dL Estimated GFR > 60 (>60) mL/min BUN/Creatinine Ratio 12.7 (6-22) Glucose 91 (70-100) mg/dL Calcium 9.4 (8.4-10.2) mg/dL Total Bilirubin 0.7 (0.2-1.3) mg/dL AST 27 (17-59) IU/L ALT 28 (<50) IU/L Alkaline Phosphatase 63 (38-126) U/L Total Protein 7.6 (6.3-8.2) g/dL Albumin 4.7 (3.5-5.0) g/dL Globulin 2.9 (1.7-4.1) g/dL Albumin/Globulin Ratio 1.6 (1.0-2.8) Lipase 51 (23-300) U/L Ethyl Alcohol < 10 ( - 10) mg/dL ECG Data Interpretation: Sinus rhythm Ventricular rate is 60 Normal axis Normal QRS Normal QTC No ST T wave changes MDM Narrative Medical decision making narrative: Labs unremarkable. Workup here in the emergency department is unremarkable. EKG is unremarkable. Low suspicion for ACS, TIA, CVA, stroke. We did discuss the possibility of a transient arrhythmia although he was having some symptoms here in the ER and had a normal sinus rhythm. Unsure the exact etiology and I did discuss this with the patient. No indication for admission to the hospital. He stated that after he walked here in the emergency department he was back to normal. Will discharge patient home with return precautions. He expressed understanding and agreement. Discharge Plan Departure Patient Disposition: Home Clinical Impression: Episodic lightheadedness Activity Restrictions/Additional Instructions: You can continue to take any medications as directed. No restrictions on activity or diet. Return to the emergency department for new or worsening symptoms. Prescriptions: No Action multivitamin [Daily Multi-Vitamin] Tablet 1 tab PO DAILY fexofenadine [Nikki Allergy] 180 mg tablet 180 mg PO DAILY Referrals: Noelle Anne DO [Primary Care Provider] - Stand Alone Forms: Patient Portal/API
[2023-09-02 11:11] LABS: Add Manual Diff / Slide Review NO; Basophils Absolute Auto 0 /uL (0-100); Basophils Percent Auto 0.7 % (0-2); Eosinophils Absolute Auto 100 /uL (0-450); Eosinophils Percent Auto 2.6 % (2-4); Hematocrit 45.8 % (41-53); Hemoglobin 15.5 g/dL (13.5-17.5); Lymphocytes Absolute Auto 1500 /uL (1100-4500); Lymphocytes Percent Auto 32.1 % (25-40); Mean Corpuscular Hemoglobin 30.4 PG (26-34); Mean Corpuscular Volume 89.4 fL (80-100); Monocytes Absolute Auto 200 /uL (0-900); Monocytes Percent Auto 5.1 % (3-14); Neutrophils Absolute Auto 2700 /uL (1500-7000); Neutrophils Percent Auto 59.5 % (50-75); Platelet Count 175 X10^3/uL (150-400); Red Blood Cell Count 5.12 X10^6/uL (4.5-5.9); Red Cell Distribution Width 12.9 % (11.6-14.8); White Blood Cell Count 4.6 X10^3/uL (4.5-11.0)
[2023-09-02] MEDS: SODIUM CHLORIDE 0.9% 1,000 ML 1000 ML IV (11:18)
[2023-09-02 11:25] LABS: Alanine Aminotransferase 28 IU/L (<50); Albumin 4.7 g/dL (3.5-5.0); Albumin Globulin Ratio 1.6 (1.0-2.8); Alkaline Phosphatase 63 U/L (38-126); Aspartate Aminotransferase 27 IU/L (17-59); BUN Creatinine Ratio 12.7 (6-22); Bilirubin Total 0.7 mg/dL (0.2-1.3); Blood Urea Nitrogen 10 mg/dL (9-20); Calcium 9.4 mg/dL (8.4-10.2); Carbon Dioxide 27 mmol/L (22-32); Chloride 101 mmol/L (98-107); Estimated Glomerular Filt Rate > 60 mL/min (>60); Ethanol (ETOH) < 10 mg/dL; Globulin 2.9 g/dL (1.7-4.1); Glucose 91 mg/dL (70-100); HEMOLYSIS < 15 (0-50); Lipase 51 U/L (23-300); Potassium 3.9 mmol/L (3.4-5.1); Sodium 138 mmol/L (137-145); Total Protein 7.6 g/dL (6.3-8.2)
== END 2023-09-02 13:27 | disposition home or self-care (01) ==
PROVIDERS: Emergency Provider Emergency Medicine; PCP Family Medicine
DX: R42 Dizziness and giddiness (principal); R07.9 Chest pain, unspecified
CPT/HCPCS: 36415; 80053; 80320; 83690; 85025; 93005; 96360; 96361; 99284

== ENCOUNTER → 2024-10-19 16:13 | Outpatient (CLI) | payer OTHER, SELFPAY ==
[2024-06-18 09:22] VITALS: BMI 24.5
[2024-10-19 16:46] LABS: Bacteria Urine None Seen; Culture Indicated Urine Cult Not Indicated; RBC Urine None Seen (0-5/HPF); Squamous Epithelial Cell Urine None Seen (0-5/HPF); Urine Volume 10mL (spun); WBC Urine None Seen (0-5/HPF)
[2024-10-19 18:02] LABS: Urine N gonorrhoeae NOT DETECTED
[2024-10-19 18:10] LABS: Urine Chlamydia NOT DETECTED
== END ==
PROVIDERS: PCP Family Medicine; Visit Provider Physician Assistant Medical
DX: R36.1 Hematospermia (principal)
CPT/HCPCS: 81015; 87210; 87491; 87591

== ENCOUNTER → 2025-04-23 08:24 | Outpatient (CLI) | payer OTHER, SELFPAY ==
[2024-06-18 09:22] VITALS: BMI 24.5
[2025-04-23 09:50] LABS: Semen Sperm Prescence Post-Vas Absent (ABSENT)
== END ==
PROVIDERS: PCP Family Medicine; Referring Provider Family Medicine; Visit Provider Family Medicine
DX: Z98.52 Vasectomy status (principal)
CPT/HCPCS: 89321

== ENCOUNTER → 2025-07-05 09:12 | Outpatient (CLI) | payer OTHER, SELFPAY ==
[2024-06-18 09:22] VITALS: BMI 24.5
[2025-07-05 11:21] LABS: Influenza A - CEPHEID Flu A NEGATIVE (NEGATIVE); Influenza B - CEPHEID Flu B NEGATIVE (NEGATIVE)
[2025-07-05 11:26] LABS: COVID-19 CEPHEID 4-PLEX PCR Negative (Negative)
== END ==
PROVIDERS: PCP Family Medicine; Visit Provider Family Medicine
DX: R50.9 Fever, unspecified (principal)
CPT/HCPCS: 87637

== ENCOUNTER → 2025-07-05 09:42 | Outpatient (CLI) | payer OTHER, SELFPAY ==
[2024-06-18 09:22] VITALS: BMI 24.5
[2025-07-05 10:37] LABS: Add Manual Diff / Slide Review NO; Hematocrit 44.2 % (41-53); Hemoglobin 15.8 g/dL (13.5-17.5); Lymphocytes Absolute Auto 600 /uL (1100-4500); Mean Corpuscular HGB Conc 35.6 % (30-36); Mean Corpuscular Hemoglobin 30.9 PG (26-34); Mean Corpuscular Volume 86.7 fL (80-100); Platelet Count 128 X10^3/uL (150-400)
[2025-07-05 11:02] LABS: Alanine Aminotransferase 25 IU/L (<50); Albumin 4.0 g/dL (3.5-5.0); Albumin Globulin Ratio 1.7 (1.0-2.8); Alkaline Phosphatase 61 U/L (38-126); Blood Urea Nitrogen 9 mg/dL (9-20); Calcium 8.3 mg/dL (8.4-10.2); Carbon Dioxide 28 mmol/L (22-32); Chloride 99 mmol/L (98-107); Estimated Glomerular Filt Rate > 60 mL/min (>60); Globulin 2.4 g/dL (1.7-4.1); Glucose 103 mg/dL (70-99); HEMOLYSIS < 15 (0-50); Lipase 28 U/L (23-300); Potassium 3.1 mmol/L (3.4-5.1); Sodium 134 mmol/L (137-145); Total Protein 6.4 g/dL (6.3-8.2)
== END ==
PROVIDERS: PCP Family Medicine; Referring Provider Family Medicine; Visit Provider Family Medicine
DX: R19.7 Diarrhea, unspecified (principal); R50.9 Fever, unspecified; R11.0 Nausea
CPT/HCPCS: 36415; 80053; 83690; 85025; 87637